=== PATIENT | female | born 1935 | race Caucasian/White ===

== ENCOUNTER 2016-08-11 10:56 | Inpatient (IN) ==
--- NOTE | 2016-08-11 11:41 | Emergency Department Note ---
Disposition Clinical Impression: Chest pain, rule out acute myocardial infarction UTI (urinary tract infection) Qualifiers: Urinary tract infection type: site unspecified Hematuria presence: with hematuria Qualified Code(s): N39.0 - Urinary tract infection, site not specified Disposition: Admitted As Inpatient Condition: Good Referrals: Boris Ovalles Jr, MD [Primary Care Provider] - Forms: ED Satisfaction Letter Time of Disposition: 14:23 General Adult HPI - General Chief complaint: ED Extremity Problem,Nontraumatic Stated complaint: left arm pain, right hip pain Time Seen by Provider: 08/11/16 11:38 Source: patient, family Limitations: no limitations Nursing Notes Reviewed: Yes Vital Signs Reviewed: Yes - History of Present Illness HPI Narrative: 80 year old female with HX of HTN and prolapsed bladder called her granddaughter one hour ago complaining of chest pain and shortness of breath associated with left arm/wrist pain and right hip pain and general fatigue and uneasiness. Glorianet states she is scheduled for a bladder prolapse surgery with Dr. Mccormack and that she routinely has UTIs. Glorianet states that she has been experiencing chills or sweating episodes for the past week when all her symptoms started. She states she has been experiencing subjective fevers. At this time her chest pain and shortness of breath have resolved and she did not recieve ASA in route and she was brought in by her family. PAtinet states that her main complaint is the left wrist and right hip pain and does not have a history of arthritis. Patient states that she does not recall trauma/injury to her wrist of hip but her left wrist is tender to movement. Pain Scale: 10 - Related Data Home Medications Medication Instructions Recorded Confirmed Amlodipine [Norvasc] 10 mg PO DAILY 12/26/14 12/26/14 Clindamycin [Cleocin] 300 mg PO Q8HR 12/26/14 12/26/14 Hydrocodone/Acetaminophen [[place] 1 - 2 tab PO Q6H PRN 12/26/14 12/26/14 5-325 Tablet] Omeprazole [PriLOSEC] 20 mg PO DAILY 12/26/14 12/26/14 Previous Rx's Medication Instructions Recorded Levofloxacin [Levaquin] 500 mg PO DAILY #11 tablet 12/30/14 Allergies Allergy/AdvReac Type Severity Reaction Status Date / Time JOAQUIM Inhibitors Allergy Swelling Verified 08/25/15 15:50 of Lip/Tongue/Throat All systems ED: reviewed and negative except as stated. Constitutional: Reports: fever, chills, weakness, night sweats. Denies: weight change Eyes: Denies: eye pain, eye discharge, vision change ENT ED: Denies: ear pain, throat pain, congestion, dysphagia Cardiovascular: Reports: chest pain, dyspnea on exertion. Denies: palpitations , edema, syncope Respiratory: Denies: cough, dyspnea, wheezes, hemoptysis Gastrointestinal: Denies: abdominal pain, nausea, vomiting, diarrhea, constipation, hematemesis, melena, hematochezia Genitourinary: Reports: dysuria. Denies: frequency, hematuria, discharge Musculoskeletal: Reports: arthralgia. Denies: back pain, neck pain, myalgia Integumentary: Denies: rash, abrasion, lesions Neurological: Denies: headache, weakness, numbness, paresthesias, confusion Psychiatric: Denies: anxiety, depression, suicidal thoughts, homicidal thoughts , auditory hallucinations, visual hallucinations Endocrine: Reports: fatigue Past Medical History - Past Medical History Medical history: Reports: GERD, hypertension, other Surgical history: Reports: cholecystectomy, hysterectomy, other Psychiatric history: Reports: no psych history - Social History Smoking Status: Never smoker Smokeless Tobacco Status: No Alcohol use: Reports: none Drug use: Reports: none Physical Exam - General Limitations: no limitations General appearance: alert, in no apparent distress, other (pale) - Head Head exam: atraumatic, normocephalic, normal inspection - Eye Eye exam: Present: normal appearance, PERRL, EOMI - Expanded Eye Exam Eyelids: bilateral: normal inspection Pupils: Left: reactive, Bilateral: regular, round - ENT ENT exam: normal exam, normal oropharynx, mucous membranes moist - Expanded ENT Exam External ear exam: Present: normal external inspection Mouth exam: Present: normal external inspection Throat exam: Present: normal inspection - Neck Neck exam: Present: normal inspection, full ROM, trachea midline - Chest Chest inspection: Present: normal inspection, symmetric chest wall rise - Respiratory Respiratory exam: Present: normal lung sounds bilaterally - Cardiovascular Cardiovascular exam: Present: normal rhythm, tachycardia, normal heart sounds - Abdominal Exam Abdominal exam: Present: soft, Non-Tender. Absent: tenderness, distention, guarding, rebound, rigidity - Expanded Upper Extremity Exam Shoulder exam: Present: normal inspection, full ROM, tenderness (leftleft) Arm exam: Present: normal inspection, full ROM, tenderness Elbow exam: Present: normal inspection, full ROM, tenderness Forearm/Wrist exam: Present: normal inspection, full ROM, tenderness (left wrist on F/E/ab/aduction) Hand exam: Present: normal inspection, full ROM, tenderness Vascular exam: Normal: capillary refill, radial pulse - Expanded Lower Extremity Exam Hip/Pelvis exam: Present: normal inspection, tenderness (right ) Upper leg exam: Present: normal inspection, full ROM. Absent: tenderness Knee exam: Present: normal inspection, full ROM. Absent: tenderness Lower leg exam: Present: normal inspection, full ROM Ankle exam: Present: normal inspection, full ROM Foot/toe exam: Present: normal inspection, full ROM Neurovascular/Tendon exam: Absent: motor deficit, sensory deficit, tendon deficit - Back Exam Back exam: Present: normal inspection, full ROM. Absent: tenderness - Neurological Exam Neurological exam: Present: alert, oriented X3 - Expanded Neurological Exam Patient oriented to: Present: person, place, time Coma Scale Eye Opening: Spontaneous Coma Scale Motor Response: Obeys Commands Coma Scale Verbal Response: Oriented Coma Scale Total: 15 - Psychiatric Psychiatric exam: Present: normal affect, normal mood - Skin Skin exam: Present: warm, dry, intact, normal color Course Course Narrative: we will do a focused cardiac evaluation in addition to ruling out source of possible infection for sepsis evaluation. IV saline lock. - Reevaluation(s) Reevaluation #1: HEART Score: 5 Time: 13:45 Reevaluation #2: updated patient on results. She meets SIR criteria and now with a source of her urine we will start zosyn, and IVF with pain relief. Patient will be admitted to the hospital today for UTI, chest pain r/o ACS. Patinet and family are agreeable to plan. Time: 14:22 - Consultations Consultation #1: discussed case with Dr. Muñoz and she accepts patient to her service. Time: 14:26 Vital Signs Temperature 99.6 F 08/11/16 10:57 Pulse Rate 111 08/11/16 10:57 Respiratory Rate 18 08/11/16 10:57 Blood Pressure 162/89 08/11/16 10:57 O2 Sat by Pulse Oximetry 97 08/11/16 10:57 Temperature 99.6 F 08/11/16 10:57 Pulse Rate 106 08/11/16 14:19 Respiratory Rate 18 08/11/16 14:19 Blood Pressure 153/84 08/11/16 14:19 O2 Sat by Pulse Oximetry 92 08/11/16 14:19 Oxygen Delivery Oxygen Delivery Nasal Cannula Medical Decision Making - Lab Data Result diagrams: 08/11/16 12:06 08/11/16 12:06 Lab Results 08/11/16 08/11/16 08/11/16 Range/Units 12:06 12:06 12:06 WBC 16.4 H (4.3-11.1) K/mcL RBC 4.25 (3.82-4.97) M/mcL Hgb 11.4 L (11.5-15.4) g/dL Hct 35.6 (35.3-44.9) % MCV 83.8 (83.0-100.0) fL MCH 26.8 L (28.0-33.3) pg MCHC 32.0 (31.6-35.5) g/dL RDW 14.1 (11.5-14.5) % Plt Count 414 H (140-400) K/mcL MPV 9.9 (9.4-12.4) fL Immature Gran % 0.5 (0-4) % Seg Neutrophils % 81.2 % Lymphocytes % 11.4 % Monocytes % 6.1 % Eosinophils % 0.4 % Basophils % 0.4 % Neutrophils # 13.3 H (1.6-8.9) K/mcL Lymphocytes # 1.9 (0.6-4.6) K/mcL Monocytes # 1.0 (0.0-1.3) K/mcL Eosinophils # 0.1 (0.0-0.6) K/mcL Basophils # 0.1 (0.0-0.2) K/mcL Sodium 138 (136-145) mEq/L Potassium 4.0 (3.5-4.5) mEq/L Chloride 101 (98-109) mEq/L Carbon Dioxide 20 (19-29) mEq/L BUN 11 (7-20) mg/dL Creatinine 0.98 (0.57-1.11) mg/dL Est GFR ( Amer) > 60 (> 60) Est GFR (Non-Af Amer) 55 L (> 60) BUN/Creatinine Ratio 11 (6-26) Glucose 93 (70-99) mg/dL Calculated Osmolality 285 (280-300) Calcium 9.6 (8.6-10.8) mg/dL Total Bilirubin 0.7 (0.2-1.2) mg/dL Direct Bilirubin 0.2 (0.0-0.5) mg/dL Indirect Bilirubin 0.5 (0.0-1.2) mg/dL AST 29 (5-34) Units/L ALT 16 (0-55) Units/L Alkaline Phosphatase 138 H (38-126) Units/L Troponin I 0.00 (0-0.03) ng/mL Serum Total Protein 9.7 H (6.0-8.3) g/dL Albumin 3.2 L (3.5-5.0) g/dL Globulin 6.5 H (2.4-3.5) g/dL Albumin/Globulin Ratio 0.5 L (1.1-2.2) Lipase 51 (8-78) Units/L Urine Color (Yellow) Urine Clarity (Clear) Urine pH (5.0-8.0) pH Units Ur Specific [place] (1.010-1.025) Urine Protein (Neg-Trace) mg/dL Urine Glucose (UA) (Normal) mg/dL Urine Ketones (Negative) mg/dL Urine Blood (Negative) Urine Nitrite (Negative) Urine Bilirubin (Negative) Urine Urobilinogen (Normal) mg/dL Ur Leukocyte Esterase (Negative) Urine Microscopic RBC (0-3) per hpf Urine Microscopic WBC (0-3) per hpf Ur Squamous Epith Cells (None-Few) per lpf Urine Bacteria (None-Few) per hpf Hyaline Casts (None-Few) per lpf Ur Culture Indicated? (NO) 08/11/16 Range/Units 13:50 WBC (4.3-11.1) K/mcL RBC (3.82-4.97) M/mcL Hgb (11.5-15.4) g/dL Hct (35.3-44.9) % MCV (83.0-100.0) fL MCH (28.0-33.3) pg MCHC (31.6-35.5) g/dL RDW (11.5-14.5) % Plt Count (140-400) K/mcL MPV (9.4-12.4) fL Immature Gran % (0-4) % Seg Neutrophils % % Lymphocytes % % Monocytes % % Eosinophils % % Basophils % % Neutrophils # (1.6-8.9) K/mcL Lymphocytes # (0.6-4.6) K/mcL Monocytes # (0.0-1.3) K/mcL Eosinophils # (0.0-0.6) K/mcL Basophils # (0.0-0.2) K/mcL Sodium (136-145) mEq/L Potassium (3.5-4.5) mEq/L Chloride (98-109) mEq/L Carbon Dioxide (19-29) mEq/L BUN (7-20) mg/dL Creatinine (0.57-1.11) mg/dL Est GFR ( Amer) (> 60) Est GFR (Non-Af Amer) (> 60) BUN/Creatinine Ratio (6-26) Glucose (70-99) mg/dL Calculated Osmolality (280-300) Calcium (8.6-10.8) mg/dL Total Bilirubin (0.2-1.2) mg/dL Direct Bilirubin (0.0-0.5) mg/dL Indirect Bilirubin (0.0-1.2) mg/dL AST (5-34) Units/L ALT (0-55) Units/L Alkaline Phosphatase (38-126) Units/L Troponin I (0-0.03) ng/mL Serum Total Protein (6.0-8.3) g/dL Albumin (3.5-5.0) g/dL Globulin (2.4-3.5) g/dL Albumin/Globulin Ratio (1.1-2.2) Lipase (8-78) Units/L Urine Color Yellow (Yellow) Urine Clarity Turbid A (Clear) Urine pH 6.0 (5.0-8.0) pH Units Ur Specific [place] 1.012 (1.010-1.025) Urine Protein 30 H (Neg-Trace) mg/dL Urine Glucose (UA) Normal (Normal) mg/dL Urine Ketones Negative (Negative) mg/dL Urine Blood Large H (Negative) Urine Nitrite Positive A (Negative) Urine Bilirubin Negative (Negative) Urine Urobilinogen Normal (Normal) mg/dL Ur Leukocyte Esterase Large H (Negative) Urine Microscopic RBC 50-100 H (0-3) per hpf Urine Microscopic WBC TNTC H (0-3) per hpf Ur Squamous Epith Cells Many H (None-Few) per lpf Urine Bacteria Many H (None-Few) per hpf Hyaline Casts Few (None-Few) per lpf Ur Culture Indicated? YES A (NO) - EKG Data EKG #1 EKG attestation: Yes I reviewed and interpreted this EKG. EKG results narrative: sinus tachycardia with rate of 104. NO STEMI. normal intervals. LAE. q eave prsent in II/avf. no old ekg. 1119 Attestation Statement - Attestation Attestation: I personally interviewed and examined this patient and my medical decision- making was reviewed with the ED Resident Physician, Dr. Correia. I agree with the documented findings, disposition and treatment plan as described except to the extent set forth below. Patient is an 80-year-old white female brought by her daughter for evaluation of complaints of chest pain this morning. Patient's daughter reports she was talking to her on the phone and while she was talking to reverse the patient was complaining of left upper extremity pain. The daughter states that when she complained of that she asked of her chest was hurting at all and she admitted that it was. This pain began sometime after she awoke this morning she said that she was short of breath but she thought that her shortness of breath was due to the amount of pain she was experiencing in her left arm as well as in her right hip. Patient states that her main issue has been variable diffuse joint pain and generalized myalgias over the past 2 weeks. Patient states she was having some left paraspinal neck pain as well as pain in bilateral hips. Patient states it has migrated down into her left arm and that although her upper arm was hurting this morning now primarily the pain is located in her left forearm wrist and hand. Patient has exquisite pain with any movement to the left upper extremity and any palpation. Seems excruciating to her. She has no signs of deformity or trauma. Patient denies any falls or history of trauma over the past 2 weeks. Patient has no areas of ecchymosis or contusions or abrasions. Patient has no areas of erythema or induration, compartments of the arm are soft. There is no overlying erythema or warmth to the skin or joints. Patient currently denies any chest discomfort she states that the pain resolved prior to arrival to the emergency department. She currently denies any shortness of breath no recent cough or cold symptoms, no fevers or chills, no sore throat, no abdominal pain, no nausea or vomiting. Patient does state that she decreased appetite this morning and "did not feel like eating breakfast". Daughters are also concerned and mentioned that she has had issues with urinary tract infections in the past has resulted in sepsis due to urinary retention. Requesting that we check for that although the patient denies any abdominal pain or cramping, no flank discomfort and no urinary symptoms. Patient has remained chest pain-free drop her ED course with mild tachycardia but a stable blood pressure. Patient's imaging was unremarkable overall no sign of bony injury to the left upper extremity or hip and chest x-ray clear. Patient was found to have a leukocytosis with a left shift as well as a UTI on Urine specimen. Based on her sensitivity reports she is null sensitive to most antibiotics. Patient with meets SIRS criteria with her leukocytosis tachycardia positive urine. We will initiate antibiotics in the ED and send urine cultures as well as blood cultures. Patient's blood pressure remained stable at this time. Will admit patient for UTI, early sepsis, as well as reevaluation of her chest pain.
[2016-08-11 12:35] LABS: Basophils # 0.1 K/mcL (0.0-0.2); Basophils % 0.4 %; Eosinophils # 0.1 K/mcL (0.0-0.6); Eosinophils % 0.4 %; Hematocrit 35.6 % (35.3-44.9); Hemoglobin 11.4 g/dL (11.5-15.4); Immature Granulocytes % 0.5 % (0-4); Lymphocytes # 1.9 K/mcL (0.6-4.6); Lymphocytes % 11.4 %; Mean Corpuscular Hemoglobin 26.8 pg (28.0-33.3); Mean Corpuscular Volume 83.8 fL (83.0-100.0); Mean Platelet Volume 9.9 fL (9.4-12.4); Monocytes % 6.1 %; Neutrophils # 13.3 K/mcL (1.6-8.9); Platelet Count 414 K/mcL (140-400); Red Blood Count 4.25 M/mcL (3.82-4.97); Red Cell Distribution Width 14.1 % (11.5-14.5); Segmented Neutrophils % 81.2 %
[2016-08-11] MEDS ORDERED: 0.9 % Sodium Chloride 500 ML IVC ONE (12:42)
[2016-08-11 12:44] LABS: Alanine Aminotransferase 16 Units/L (0-55); Albumin 3.2 g/dL (3.5-5.0); Albumin/Globulin Ratio 0.5 (1.1-2.2); Alkaline Phosphatase 138 Units/L (38-126); BUN/Creatinine Ratio 11 (6-26); Bilirubin,Indirect 0.5 mg/dL (0.0-1.2); Bilirubin,Total 0.7 mg/dL (0.2-1.2); Blood Urea Nitrogen 11 mg/dL (7-20); Calcium 9.6 mg/dL (8.6-10.8); Carbon Dioxide 20 mEq/L (19-29); Chloride 101 mEq/L (98-109); Globulin 6.5 g/dL (2.4-3.5); Glucose 93 mg/dL (70-99); Lipase 51 Units/L (8-78); Osmolality,Calculated 285 (280-300); Sodium 138 mEq/L (136-145); eGFR For African Americans > 60 (> 60); eGFR For Non-African Americans 55 (> 60)
[2016-08-11 12:45] LABS: Aspartate Amino Transferase 29 Units/L (5-34); Bilirubin,Direct 0.2 mg/dL (0.0-0.5); Total Protein 9.7 g/dL (6.0-8.3)
[2016-08-11] MEDS ORDERED: *HR* FentaNYL (PF) 100 MCG/2 ML VIAL IVP ONE (12:46)
[2016-08-11] MEDS ORDERED: Aspirin 81 MG TAB.CHEW PO ONE (13:20)
[2016-08-11 13:57] LABS: Bilirubin,Urine Negative (Negative); Blood,Urine Large (Negative); Clarity,Urine Turbid (Clear); Color,Urine Yellow (Yellow); Glucose,Urine (UA) Normal (Normal); Ketones,Urine Negative (Negative); Leukocyte Esterase,Urine Large (Negative); Nitrite,Urine Positive (Negative); Protein,Urine 30 mg/dL (Neg-Trace); Specific Gravity,Urine 1.012 (1.010-1.025); Urobilinogen,Urine Normal (Normal)
[2016-08-11 14:01] LABS: Bacteria,Urine Many per hpf (None-Few); Hyaline Casts,Urine Few per lpf (None-Few); RBC,Urine 50-100 per hpf (0-3); Squamous Epithelial Cell,Urine Many per lpf (None-Few); WBC,Urine TNTC per hpf (0-3)
[2016-08-11] MEDS ORDERED: *HR* Morphine 2 MG/ML SYRINGE IVP ONE (14:18)
[2016-08-11] MEDS ORDERED: Piperacillin/Tazobactam 3.375 GM in D5% in Water (Mini-Bag+) 100 ML IVPB ONE (14:18)
[2016-08-11] MEDS ORDERED: Ondansetron 4 MG/2 ML VIAL IVP ONE (14:18)
[2016-08-11] MEDS ORDERED: Naloxone 0.4 MG/ML INJ IVP PRN (15:09)
[2016-08-11] MEDS ORDERED: Ondansetron 4 MG/2 ML VIAL IVP PRN (15:09)
[2016-08-11] MEDS ORDERED: 0.9 % Sodium Chloride 1,000 ML IVC SCH (15:15)
--- NOTE | 2016-08-11 16:54 | Internal Med History&Physical ---
<Wendy Begum - Last Filed: 08/11/16 17:12> Date of Encounter: 08/11/16 Time of Encounter: 15:00 Assessment and Plan (1) Sepsis Current visit: Yes Status: Acute 1 patient patient has chronic history of UTIs. She presents with subjective fevers chills low-grade temperature 90.9 tachycardic elevated white count 16.4 sources urinary. Blood cultures urine cultures obtained 2 patient given IV fluids in the ER will continue 3 IV Rocephin adjusted sensitivity once cultures are back 4 monitor intake and output Qualifiers: Sepsis type: sepsis due to unspecified organism Qualified Code(s): A41.9 - Sepsis, unspecified organism (2) UTI (urinary tract infection) Current visit: No Status: Acute 1 patient has history of chronic UTIs is to go undergo bladder repair with Dr. Mccormack. Urinalysis revealed UTI. She has subjective fever and elevated white count. Blood cultures urine cultures obtained 2 continue with Rocephin adjust to sensitivity-previous cultures Escherichia coli sensitive to Rocephin Qualifiers: Urinary tract infection type: acute cystitis Hematuria presence: with hematuria Qualified Code(s): N30.01 - Acute cystitis with hematuria (3) Chest pain, rule out acute myocardial infarction Current visit: Yes Status: Acute 1 patient is experiencing midsternal chest pain this a.m. 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 Paiz is a 80 year old female past medical history of high blood pressure as well as bladder prolapse frequent UTIs. Patient had been experiencing some chest pain shortness of breath which did start this morning. Pain is nonradiating describes as a heaviness 10 out of 10 no aggravating or relieving factors. Chest pain resolved on its own. She also has been experiencing left arm and wrist pain as well as hip fatigue and lower extremity weakness for approximately 2 weeks she scheduled for a bladder prolapse surgery with Dr. Mccormack and she has repeated UTIs. She has been experiencing some chills and sweating for the past week. Patient denies any recent trauma or injury to her wrist or hip she denies any falls. She presented to the ER with the above complaint. According to ER records patient was tachycardic on presentation. 111 temperature was 99.6 lab work revealed elevated white count 16.4 cardiac troponin was 0 urinalysis indicative of UTI with a large amount of blood and nitrates and leuko esterase. Patient did meet sepsis criteria blood cultures were obtained patient was given IV fluids lactate was obtained she was given IV Zosyn. X-ray of chest was negative for any acute process hip x-ray was negative for any fractures x-ray of left wrist did reveal arthritic changes. She has been admitted for further workup and evaluation. Presently the patient complains of pain all over left wrist is tender to touch limited range of motion to the home. She is unable to crash E states it hurts too much. Range of motion of lower extremities patient states painful to move. She complains of midsternal chest pain which is reproducible on palpation. EKG with no ST-T wave abnormalities lungs sounds are clear heart sounds S1 and S2 with no rubs clipped gallops murmurs noted. She is hemodynamically stable this time. I reviewed his case with Dr. Joshua who agrees with plan Past Med Surg Social Fam HX - Past Medical History Medical history: GERD, hypertension, other Psychiatric history: no psych history - Past Surgical History Surgical History: cholecystectomy, hysterectomy, other - Social History Smoking Status: Never smoker Smokeless Tobacco Status: No Alcohol use: none Drug use: none - Family History Mother Family Member Ethnicity: Non- Living Status: Hx Family Cardiac Disorders: No Hx Family Respiratory Disorders: No Hx Family Cancer: No Hx Family GI Disorders: No Hx Family Endocrine Disorder: No Hx Family Neuromuscular Disorders: No Hx Family Neurologic Disorders: No Hx Family HEENT Disorders: No Hx Family Autoimmune Disorders: No Internal Medicine - H&P: Meds Amlodipine [Norvasc] 10 mg PO DAILY 08/25/15 [History] Omeprazole [PriLOSEC] 20 mg PO DAILY 12/26/14 [History] Allergies JOAQUIM Inhibitors Allergy (Verified 12/26/14 15:50) Swelling of Lip/Tongue/Throat All Systems PM: A 10-system review of systems was performed and is negative for pertinent findings except as documented above in the HPI. - Constitutional Constitutional: fatigue, fever(s), malaise, night sweats, weakness - Cardiovascular Cardiovascular ROS IM: chest pain, no diaphoresis, no dyspnea, no lightheadedness, no palpitations, no syncope - Respiratory Respiratory: dyspnea - Gastrointestinal Gastrointestinal: no abdominal pain, no diarrhea, no hematemesis, no hematochezia, no melena, no nausea, no vomiting - Genitourinary Genitourinary: no change in urinary stream, no dysuria, no flank pain, no hematuria - Musculoskeletal Musculoskeletal ROS IM: arthralgias, limited range of motion, stiffness - Neurological Neurological ROS: no confusion, no convulsions, no focal weakness, no numbness, no tingling, no tremor(s) - Constitutional Vitals: Temp Pulse Resp BP Pulse Ox 99.6 F 94 18 118/79 92 08/11/16 10:57 08/11/16 16:04 08/11/16 16:17 08/11/16 16:17 08/11/16 16:04 General appearance: Present: A&O X 3, answers questions appropriately - Head Head exam: Present: atraumatic, normocephalic - Neck Neck exam general surgery: Present: supple, trachea midline. Absent: lymphadenopathy - Respiratory Respiratory exam: Present: CTAB. Absent: accessory muscle use, rales, rhonchi, wheezes - Cardiovascular Cardiovascular exam: Present: RRR, +S1, +S2. Absent: diastolic murmur, gallop, rubs, systolic murmur - GI/Abdominal GI/Abdominal exam: Present: normal bowel sounds, soft, no peritoneal signs. Absent: distended, tenderness - Extremities Exam Extremities exam: Present: warm, radial pulses palpable and symetrical. Absent : calf tenderness, cyanotic, pedal edema - Expanded Upper Extremities Exam Forearm wrist exam: Present: pain with axial thumb loading, tenderness - Neurological Exam Neurological exam: Present: CN II-XII intact, oriented X3, no focal deficits. Absent: pronater drift, facial droop, speech deficit - Skin Skin exam: Present: dry, intact Internal Med - H&P Results - Labs CBC & Chem 7: 08/11/16 12:06 08/11/16 12:06 - EKG Data Rate: tachycardia - EKG Data Prior EKG available for review: yes When compared to previous EKG: there is no significant change - Diagnostic Studies Other Images Additional comments: Chest X-Ray 08/11/16 11:07 IMPRESSION: No acute cardiopulmonary disease. D/ / 08/11/2016 11:52:00 Sumaya Paulson MD / Ketty Nolan Interpreting Provider: Sumaya Paulson MD Hip X-Ray 08/11/16 11:17 IMPRESSION: No significant findings in the right hip. D/ / Sterling Sawant MD / Sterling Sawant MD Interpreting Provider: Sterling Sawant MD Wrist X-Ray 08/11/16 11:17 IMPRESSION: 1. Moderate thumb CMC degenerative changes. No superimposed acute osseous finding to account for patient's pain. 2. Triangular fibrocartilage chondrocalcinosis. D/ / 08/11/2016 11:53:27 Ta oMta MD / pardeep Interpreting Provider: Ta Mota MD <Blu Joshua T - Last Filed: 08/11/16 17:38> Date of Encounter: 08/11/16 Internal Medicine - H&P: HPI History of present illness: Ms. Paiz is a 80 year old female All Systems PM: A 10-system review of systems was performed and is negative for pertinent findings except as documented above in the HPI. - Constitutional Vitals: Temp Pulse Resp BP Pulse Ox 99.6 F 94 18 118/79 92 08/11/16 10:57 08/11/16 16:04 08/11/16 16:17 08/11/16 16:17 08/11/16 16:04 Internal Med - H&P Results - Labs CBC & Chem 7: 08/11/16 12:06 08/11/16 12:06 - Attending Attestation Seen independently at bedside and EMR reviewed. Plan of care is as discussed with PHOTOLITH OPERATOR Wendy Begum with the plan reflected in her documentation Patient with migrating arthralgia and generalized body tenderness, no flu-like symptoms, she is comfortable at bedside, tachycardic, chest pain is reproducible and her Left wrist is mildly swollen, no pedal edema, she has S1, S2, regular and tachycardic, aortic sclerosis murmur. Abdomen is benign, not tender, neuro exam showed no deficits labs and imaging reviewed: leukocytosis with left shift, UA with positive nitrites, LE, blood. Head CT/CXR unremarkable, Left wrist Xray with degenerative changes A/P: Sepsis secondary to UTI, Myalgias on-specific, R wrist osteoarthritis, follow cultures, continue ceftriaxone, cycle troponins, follow ECHO rest of details as in HARINDER Boyd's documentation
[2016-08-11] MEDS: Acetaminophen 325 MG TABLET PO PRN ×2 (18:11→23:41)
[2016-08-11] MEDS: 0.9 % Sodium Chloride 1,000 ML IVC SCH (18:35)
[2016-08-11] MEDS: Ibuprofen 400 MG TABLET PO SCH (20:53)
[2016-08-12 01:16] LABS: Basophils % 0.3 %; Eosinophils # 0.3 K/mcL (0.0-0.6); Eosinophils % 2.2 %; Hematocrit 29.4 % (35.3-44.9); Immature Granulocytes % 0.5 % (0-4); Lymphocytes # 2.6 K/mcL (0.6-4.6); Lymphocytes % 22.9 %; Mean Corpuscular HGB Conc 31.6 g/dL (31.6-35.5); Mean Corpuscular Hemoglobin 26.4 pg (28.0-33.3); Mean Corpuscular Volume 83.5 fL (83.0-100.0); Mean Platelet Volume 9.1 fL (9.4-12.4); Monocytes # 1.2 K/mcL (0.0-1.3); Monocytes % 10.1 %; Neutrophils # 7.4 K/mcL (1.6-8.9); Platelet Count 333 K/mcL (140-400); Red Blood Count 3.52 M/mcL (3.82-4.97); Red Cell Distribution Width 14.1 % (11.5-14.5)
[2016-08-12 01:20] LABS: Hemoglobin 9.3 g/dL (11.5-15.4)
[2016-08-12 01:32] LABS: BUN/Creatinine Ratio 12 (6-26); Blood Urea Nitrogen 10 mg/dL (7-20); Calcium 8.7 mg/dL (8.6-10.8); Carbon Dioxide 22 mEq/L (19-29); Chloride 106 mEq/L (98-109); Chol/HDL Ratio 3.9 (0-4.9); Cholesterol 139 mg/dL (< 200); Glucose 101 mg/dL (70-99); HDL Cholesterol 36 mg/dL (40-59); LDL Cholesterol,Calculated 82 mg/dL (0-99); Osmolality,Calculated 287 (280-300); Sodium 139 mEq/L (136-145); Triglycerides 104 mg/dL (< 150); eGFR For African Americans > 60 (> 60); eGFR For Non-African Americans > 60 (> 60)
[2016-08-12 01:33] LABS: Potassium 2.8 mEq/L (3.5-4.5)
[2016-08-12] MEDS: 0.9 % Sodium Chloride 1,000 ML IVC SCH ×2 (03:40→14:27)
[2016-08-12] MEDS: *HR* Enoxaparin 40 MG/0.4 ML SYRINGE SQ SCH (05:50)
[2016-08-12] MEDS: Acetaminophen 325 MG TABLET PO PRN ×2 (08:06→23:54)
[2016-08-12 09:15] LABS: Magnesium 1.7 mg/dL (1.6-2.6)
[2016-08-12] MEDS: Ibuprofen 400 MG TABLET PO SCH (09:26)
[2016-08-12] MEDS: amLODIPine 5 MG TABLET PO SCH (09:26)
[2016-08-12] MEDS: Aspirin Enteric Coated 81 MG Tablet PO SCH (09:26)
--- NOTE | 2016-08-12 10:53 | ECHO - Doppler Report ---
Echocardiogram Name: Laura Paiz Date of Study: 08/12/2016 Date: 1935 Ht: 65.0 in Medical Record#: [id number] Age: 80 Wt: 150.0 lb Gender: Female BSA: 1.75 Order #: [id number] Location: [facility] Room #: 2A32 Reading Physician: Geeta Galan DO Re[employer] Tub[employer] Machine Operator: Julio C Sahni RN Ordering Physician: Wendy Begum CNP Primary Physician: Boris Ovalles MD Indications: Chest pain Impressions: LVEF 65%. Normal left ventricular size and systolic function. There is evidence of mild diastolic dysfunction of the left ventricle. Normal right ventricular size and function. Mild mitral regurgitation. Mild tricuspid regurgitation. No pulmonary hypertension. Trivial pericardial effusion. No tamponade. Left Ventricular Wall Motion: Rest Echo Findings All wall segments showed normal motion. Findings: Study Quality * Technically adequate exam. ECG Findings * Normal sinus rhythm. Left Ventricle * Basal sigmoid septum. * LVEF 65%. * Mild left ventricular diastolic dysfunction. Aorta * Normally sized aortic root. Mitral Valve * No mitral stenosis. * Mildly calcified mitral valve leaflets. * Mild mitral regurgitation. Aortic Valve * No aortic regurgitation. * Trileaflet aortic valve. * Normal aortic valve structure. * No aortic stenosis. Tricuspid Valve * Normal tricuspid valve structure. * Mild tricuspid regurgitation. * Estimated RA pressure is 3 mmHg. * Estimated RVSP is 32 mmHg. * No pulmonary hypertension. Pulmonic Valve * Pulmonic valve is not well visualized. * No pulmonic stenosis. * Trace pulmonic regurgitation. Pulmonary Artery * Pulmonary artery not well visualized. Right Ventricle * Normal right ventricular structure and function. Right Atrium * Normal right atrial size. Pericardium * There is a trivial pericardial effusion present. * There is no echocardiographic evidence of tamponade. Left Atrium * Moderate to severely dilated left atrium. Interatrial Septum * No evidence of PFO by color Doppler. IVC * Normal IVC dimensions and inspiratory collapse. History Hypertension Measurements: BP: 113/ 73 2D Normal Values RVIDd: 3.00 cm <2.7 cm IVSd: 1.00 cm 0.6 - 1.0 cm LVIDd: 5.40 cm 3.7 - 5.6 cm LVPWd: 1.00 cm 0.6 - 1.1 cm LVIDs: 3.20 cm 1.5 - 3.6 cm LA: 3.70 cm 2.0 - 4.0cm %FS: 40.70 cm >25 % LVOT Diam: 2.00 cm LA volume: 86 Mitral Valve Peak E:1.04 m/sec Peak A:1.30 m/sec E/A Ratio:0.8 Peak E' Lat Adán:6.34 cm/s Peak E' Med Adán:5.36 cm/s E/E' Lat Ratio:16.4 E/E' Med Ratio:19.4 Tricuspid Valve TV Regurg Peak Grad: 29.00mmHg TV Regurg Peak Adán: 2.71m/sec Updated by Geeta Galan on 08/12/2016 10:46:47 AM electronically signed on 08/12/2016 10:47:56 AM with status of Final Wall Motion Miller: 1=Normal, 2=Hypokinesis, 3=Akinesis, 4=Dyskinesis, 5=Aneurysmal, 6=Hyperkinetic, X=Not Visualized (Blank)=Missing
[2016-08-12] MEDS ORDERED: Ibuprofen 400 MG TABLET PO PRN (11:39)
[2016-08-12] MEDS ORDERED: predniSONE 20 MG TABLET PO SCH (12:00)
[2016-08-12 12:44] LABS: Uric Acid 4.7 mg/dL (2.6-6.0)
[2016-08-12] MEDS: Magnesium Oxide 400 MG TABLET PO SCH ×2 (14:28→20:47)
[2016-08-12] MEDS: *HR* HYDROcodone/Acet 5/325 mg TABLET PO PRN ×2 (14:40→20:46)
--- NOTE | 2016-08-12 16:04 | Internal Med Progress Note ---
<Clemente Riggs - Last Filed: 08/12/16 16:01> Date of Encounter: 08/12/16 Time of Encounter: 16:01 - Assessment and plan (1) Sepsis Current Visit: Yes Status: Acute Assessment and plan: patient met Sepsis criteria. With Leukocytosis and ttachycardia. However she also appears to be having a pseudogout flair so this may explain some of this. Normal lactic acid. Source secondary to UTI. 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 Mccormack. Plan is for surgical correction eventually. Blood cultures are pending. Urine cultures have grown GNR. Agree with Lance looking at prior cultures. Qualifiers: Sepsis type: sepsis due to unspecified organism Qualified Code(s): A41.9 - Sepsis, unspecified organism (2) UTI (urinary tract infection) Current Visit: No Status: Acute Assessment and plan: as stated above. No need for pacheco. Will Dc Qualifiers: Urinary tract infection type: acute cystitis Hematuria presence: with hematuria Qualified Code(s): N30.01 - Acute cystitis with hematuria (3) Pseudogout Current Visit: Yes Status: Acute Assessment and plan: Xray of the left wrist reveals chondrocalcinosis. likely exacerbated by infection and low magnesium. will treat with naproxen. I dont see a joint effusion on exam so unable to tap and confirm with microscopy at this time. (4) DVT prophylaxis Current Visit: Yes Status: Acute Assessment and plan: Lovenox - Subjective Interval history: No major events overnight. This Am patient complains of left wrist pain, neck stiffness, low back pain and right hip pain. She denies any chest pain or difficulty breathing. she denies any dysuria or hematuria but states she is often asymptomatic with her UTIs. She has no further complaints or concerns at this time. - Constitutional Vitals: Temp Pulse Resp BP Pulse Ox 98.7 F 80 18 123/71 93 08/12/16 10:55 08/12/16 10:55 08/12/16 10:55 08/12/16 10:55 08/12/16 10:55 General appearance: Present: A&O X 3, answers questions appropriately - Head Head exam: Present: atraumatic, normocephalic - Eye Eye exam: Present: PERRL, conjuntiva pink, sclera anicteric Pupils: Present: PERRL - Neck Neck exam general surgery: Present: supple, trachea midline. Absent: lymphadenopathy - Respiratory Respiratory exam: Present: CTAB. Absent: accessory muscle use, rales, rhonchi, wheezes - Cardiovascular Cardiovascular exam: Present: RRR, +S1, +S2. Absent: diastolic murmur, gallop, rubs, systolic murmur - GI/Abdominal GI/Abdominal exam: Present: normal bowel sounds, soft, no peritoneal signs. Absent: distended, tenderness - Extremities Exam Extremities exam: Present: warm, radial pulses palpable and symetrical. Absent : calf tenderness, cyanotic, pedal edema Additional comments: the left wrist is warm to palpation and very tender with crepitation to palpation. and movement. I could not appreciate any fluid collection. Normal external inspection of the right hip. However she has pain with movement. Internal Medicine: Result - Labs CBC & Chem 7: 08/12/16 00:54 08/12/16 00:54 Labs: Short CBC 08/12/16 Range/Units 00:54 WBC 11.5 H (4.3-11.1) K/mcL Hgb 9.3 L D (11.5-15.4) g/dL Hct 29.4 L (35.3-44.9) % Plt Count 333 (140-400) K/mcL Neutrophils # 7.4 (1.6-8.9) K/mcL BMP 08/12/16 00:54 Sodium 139 Potassium 2.8 L D Chloride 106 Carbon Dioxide 22 BUN 10 Creatinine 0.86 Glucose 101 H Calcium 8.7 Cardiac Enzymes 08/11/16 08/12/16 Range/Units 18:18 00:54 Troponin I 0.00 0.00 (0-0.03) ng/mL Consult Discharge Plan - Plan Referrals: Boris Ovalles Jr, MD [Primary Care Provider] - <Moshe Vang - Last Filed: 08/12/16 17:04> Date of Encounter: 08/12/16 - Constitutional Vitals: Temp Pulse Resp BP Pulse Ox 98.9 F 92 18 146/74 92 08/12/16 16:39 08/12/16 16:39 08/12/16 16:39 08/12/16 16:39 08/12/16 16:39 Internal Medicine: Result - Labs CBC & Chem 7: 08/12/16 00:54 08/12/16 00:54 Labs: Short CBC 08/12/16 Range/Units 00:54 WBC 11.5 H (4.3-11.1) K/mcL Hgb 9.3 L D (11.5-15.4) g/dL Hct 29.4 L (35.3-44.9) % Plt Count 333 (140-400) K/mcL Neutrophils # 7.4 (1.6-8.9) K/mcL BMP 08/12/16 00:54 Sodium 139 Potassium 2.8 L D Chloride 106 Carbon Dioxide 22 BUN 10 Creatinine 0.86 Glucose 101 H Calcium 8.7 Cardiac Enzymes 08/11/16 08/12/16 Range/Units 18:18 00:54 Troponin I 0.00 0.00 (0-0.03) ng/mL - Attending Attestation I examined this patient and my medical decision-making was reviewed with the CAMP HOUSEKEEPER/PA/Advanced Practice Nurse/Resident Physician. I agree with the documented findings, disposition and treatment plan as described except to the extent set forth below. Wrist xray noted, likely pseudgout. Continue with antibiotics for UTI. Echo noted. Remove pacheco.
[2016-08-12] MEDS ORDERED: Potassium Chloride Elixir 20 MEQ/15 ML UDC PO ONE ×2 (16:05→17:43)
--- NOTE | 2016-08-12 17:42 | Electrocardiograph Report ---
[address] [place] [address] Test Date: 2016-08-11 Pat Name: Laura Paiz Department: 102 Room: 2A32 Gender: F Hog Scalder: : 1935 Requested By: Avis Correia Order Number: [id number] Reading MD: Rony Valerio Measurements Intervals [place] Rate: 104 P: 7 W[place]: 136 QRS: -11 QRSD: 110 T: 32 QT: 343 QTc: 403 Interpretive Statements SINUS TACHYCARDIA POSSIBLE LEFT ATRIAL ENLARGEMENT POSSIBLE INFERIOR MYOCARDIAL INFARCTION, PROBABLY OLD ABNORMAL RHYTHM ECG Electronically Signed On 08-12-2016 17:40:30 EDT by Rony Valerio
[2016-08-13 04:50] LABS: Basophils % 0.2 %; Eosinophils % 0.2 %; Hematocrit 30.8 % (35.3-44.9); Hemoglobin 9.6 g/dL (11.5-15.4); Immature Granulocytes % 0.6 % (0-4); Lymphocytes # 1.9 K/mcL (0.6-4.6); Lymphocytes % 15.4 %; Mean Corpuscular HGB Conc 31.2 g/dL (31.6-35.5); Mean Corpuscular Hemoglobin 26.2 pg (28.0-33.3); Mean Corpuscular Volume 83.9 fL (83.0-100.0); Mean Platelet Volume 9.2 fL (9.4-12.4); Monocytes # 0.5 K/mcL (0.0-1.3); Monocytes % 4.2 %; Neutrophils # 9.9 K/mcL (1.6-8.9); Platelet Count 379 K/mcL (140-400); Red Blood Count 3.67 M/mcL (3.82-4.97); Red Cell Distribution Width 13.8 % (11.5-14.5); Segmented Neutrophils % 79.4 %
[2016-08-13 05:11] LABS: BUN/Creatinine Ratio 10 (6-26); Blood Urea Nitrogen 7 mg/dL (7-20); Calcium 8.9 mg/dL (8.6-10.8); Carbon Dioxide 21 mEq/L (19-29); Chloride 108 mEq/L (98-109); Glucose 101 mg/dL (70-99); Magnesium 1.7 mg/dL (1.6-2.6); Osmolality,Calculated 284 (280-300); Sodium 138 mEq/L (136-145); eGFR For African Americans > 60 (> 60); eGFR For Non-African Americans > 60 (> 60)
[2016-08-13 05:20] LABS: Potassium 4.4 mEq/L (3.5-4.5)
[2016-08-13] MEDS: *HR* Enoxaparin 40 MG/0.4 ML SYRINGE SQ SCH (05:36)
--- NOTE | 2016-08-13 07:27 | Urology Progress Note ---
Date of Encounter: 08/13/16 Time of Encounter: 07:24 - Assessment and Plan (1) UTI (urinary tract infection) Current Visit: Yes Status: Acute Assessment and plan: urine cx growing gram neg rods. final not returned yet. OK with discharge from standpoint. surgery canceled yesterday bc of acute illness. will reschedule. I am going to recommend ABX coverage up until surgery day (yet to be planned). If patient goes home before final culture is back, I recommend starting bactrim. I can followup final culture and start appropriate ABX if resistance to bactrim Qualifiers: Urinary tract infection type: acute cystitis Hematuria presence: with hematuria Qualified Code(s): N30.01 - Acute cystitis with hematuria Progress Note Subjective: feels better Narrative: pt states she feels better but is still having left arm pain and difficulty moving. cath out and urinating well Objective Initial Vital Signs Temp Pulse Resp BP Pulse Ox 99.6 F 111 18 162/89 97 08/11/16 10:57 08/11/16 10:57 08/11/16 10:57 08/11/16 10:57 08/11/16 10:57 - General physical appearance Present: well developed, no distress - Abdomen Present: soft, non tender - Labs 08/13/16 04:11 08/13/16 04:11 Diabetes panel 08/13/16 Range/Units 04:11 Sodium 138 (136-145) mEq/L Potassium 4.4 D (3.5-4.5) mEq/L Chloride 108 (98-109) mEq/L Carbon Dioxide 21 (19-29) mEq/L BUN 7 (7-20) mg/dL Creatinine 0.73 (0.57-1.11) mg/dL Glucose 101 H (70-99) mg/dL Calcium 8.9 (8.6-10.8) mg/dL Calcium panel 08/13/16 Range/Units 04:11 Calcium 8.9 (8.6-10.8) mg/dL Pituitary panel 08/13/16 Range/Units 04:11 Sodium 138 (136-145) mEq/L Potassium 4.4 D (3.5-4.5) mEq/L Chloride 108 (98-109) mEq/L Carbon Dioxide 21 (19-29) mEq/L BUN 7 (7-20) mg/dL Creatinine 0.73 (0.57-1.11) mg/dL Glucose 101 H (70-99) mg/dL Calcium 8.9 (8.6-10.8) mg/dL Adrenal panel 08/13/16 Range/Units 04:11 Sodium 138 (136-145) mEq/L Potassium 4.4 D (3.5-4.5) mEq/L Chloride 108 (98-109) mEq/L Carbon Dioxide 21 (19-29) mEq/L BUN 7 (7-20) mg/dL Creatinine 0.73 (0.57-1.11) mg/dL Glucose 101 H (70-99) mg/dL Calcium 8.9 (8.6-10.8) mg/dL Consult Discharge Plan - Plan Referrals: Boris Ovalles Jr, MD [Primary Care Provider] -
[2016-08-13] MEDS: Magnesium Oxide 400 MG TABLET PO SCH (08:36)
[2016-08-13] MEDS: Aspirin Enteric Coated 81 MG Tablet PO SCH (08:36)
[2016-08-13] MEDS: amLODIPine 5 MG TABLET PO SCH (08:37)
[2016-08-13] MEDS ORDERED: *HR* HYDROcodone/Acet 5/325 mg TABLET PO PRN (10:03)
[2016-08-13 11:20] VITALS: BP 136/76
--- NOTE | 2016-08-13 13:26 | Discharge Summary ---
<Clemente Riggs - Last Filed: 08/13/16 13:45> Date of Encounter: 08/13/16 Time of Encounter: 13:21 - Discharge Diagnosis (1) Sepsis Priority: Primary Status: Acute Qualifiers: Sepsis type: sepsis due to unspecified organism Qualified Code(s): A41.9 - Sepsis, unspecified organism (2) UTI (urinary tract infection) Priority: Secondary Status: Acute Qualifiers: Urinary tract infection type: acute cystitis Hematuria presence: with hematuria Qualified Code(s): N30.01 - Acute cystitis with hematuria (3) Pseudogout Priority: Secondary Status: Acute (4) DVT prophylaxis Priority: Secondary Status: Acute - Discharge Medications Prescriptions: HYDROcodone/Acet 5/325 mg [[place] 5-325 mg] 1 tab PO Q8HR PRN #21 tablet PRN Reason: Moderate to Severe Pain (4-10) Naproxen [Naprosyn] 500 mg PO BIDWM PRN 30 Days PRN Reason: Pain Nitrofurantoin Macrocrystal [Nitrofurantoin] 100 mg PO BID #40 capsule Home Medications: Amlodipine [Norvasc] 10 mg PO DAILY 12/26/14 [History] Omeprazole [PriLOSEC] 20 mg PO DAILY 12/26/14 [History] Aspirin Enteric Coated [Aspirin EC] 81 mg PO DAILY tablet. 08/13/16 [Rx] HYDROcodone/Acet 5/325 mg [[place] 5-325 mg] 1 tab PO Q8HR PRN #21 tablet [Rx] Naproxen [Naprosyn] 500 mg PO BIDWM PRN 30 Days 08/13/16 [Rx] Nitrofurantoin Macrocrystal [Nitrofurantoin] 100 mg PO BID #40 capsule 08/13/16 [Rx] Allergies/Adverse Reactions: Allergies JOAQUIM Inhibitors Allergy (Verified 12/26/14 15:50) Swelling of Lip/Tongue/Throat Procedures/tests Complete & Pending: Procedures Performed prior 72 hours Category Date Time Status EV echocardiogram Routine Y 08/12/16 16:40 Completed Date of admission: 08/11/16 16:07 Primary care physician: Boris Ovalles Jr, MD Consults: 08/11/16 16:38 Consult to Physical Therapy [CONS] Routine Comment: Evaluate, develop and implement POC 08/12/16 11:38 Consult to Occupational Therapy [CONS] Routine Comment: Evaluate, develop and implement POC Discharging clinician: Clemente Riggs Anticipated date of discharge: 08/13/16 - Patient Status Disposition: Home, Self-Care Condition: Good Functional capacity at discharge: independent ambulation Overall status at discharge: patient is progressing back to baseline - Discharge Instructions Instructions: Urinary Tract Infection in Women (DC), Sepsis (DC) Follow Up With: Boris Ovalles Jr, MD [Primary Care Provider] - 08/20/16 10:40 am (Located in the medical office building, [address] ) - Diet and Activity Activity: increase activity as tolerated Diet: advance to your usual diet Hospital course: Ms. Paiz is a 80 year old female who is admitted to [facility] with a urinary tract infection. There was concerns for possible sepsis given her leukocytosis and tachycardia. However no blood cultures were drawn. However clinically she was also complaining of severe left wrist and right hip bone pain as well as some low back pain. X-ray of the wrist and reveal chondrocalcinosis. Additionally she had markedly elevated inflammatory markers. She was treated with antibiotics as well as prednisone and steroids and had a marketed clinical improvement. Her leukocytosis did trend down to however there is a slight trend up on today's labs however she did receive steroids yesterday. I think most likely this patient was not septic or rather she had sirs criteria met from her inflammation. Today she is ambulating on her own. No difficulty eating drinking having normal bowel and bladder function. No major abnormalities with her vitals are labs. Plan is to discharge her home with by mouth Macrobid. Urine cultures did grow pansensitive Escherichia coli. We will treat her for complicated urinary tract infection for a total of 14 days and then we will continue her on prophylactic nitrofurantoin until she can have her prolapse bladder surgically corrected. We will discharge her on naproxen for her pseudogout. She stated that she does have a follow-up appointment with bone and joint that her family has set up for her. Patient voices back understanding and agreement to the above plan. - Time Spent with Patient Total time spent providing and/or coordinating discharge services: Greater than 30 minutes (approximately 40 minutes.) - Constitutional Vitals: Temp Pulse Resp BP Pulse Ox 98.4 F 76 18 136/76 96 08/13/16 11:19 08/13/16 11:19 08/13/16 11:19 08/13/16 11:19 08/13/16 11:19 General appearance: Present: A&O X 3, answers questions appropriately - Head Head exam: Present: atraumatic, normocephalic - Eye Eye exam: Present: PERRL, conjuntiva pink, sclera anicteric Pupils: Present: PERRL - Neck Neck exam general surgery: Present: supple, trachea midline. Absent: lymphadenopathy - Respiratory Respiratory exam: Present: CTAB. Absent: accessory muscle use, rales, rhonchi, wheezes - Cardiovascular Cardiovascular exam: Present: RRR, +S1, +S2. Absent: diastolic murmur, gallop, rubs, systolic murmur - GI/Abdominal GI/Abdominal exam: Present: normal bowel sounds, soft, no peritoneal signs. Absent: distended, tenderness - Extremities Exam Extremities exam: Present: warm, radial pulses palpable and symetrical. Absent : calf tenderness, cyanotic, pedal edema Additional comments: Left wrist is still painful with movement however she has marked improvement in range of motion. Less warmth with palpation less tenderness with palpation. - Skin Skin exam: Present: dry, intact <Moshe Vang Minoo - Last Filed: 08/13/16 16:12> Date of Encounter: 08/13/16 Procedures/tests Complete & Pending: Procedures Performed prior 72 hours Category Date Time Status EV echocardiogram Routine Y 08/12/16 16:40 Completed Date of admission: 08/11/16 16:07 Primary care physician: Boris Ovalles Jr, MD Consults: 08/11/16 16:38 Consult to Physical Therapy [CONS] Routine Comment: Evaluate, develop and implement POC 08/12/16 11:38 Consult to Occupational Therapy [CONS] Routine Comment: Evaluate, develop and implement POC Hospital course: Ms. Paiz is a 80 year old female - Time Spent with Patient Total time spent providing and/or coordinating discharge services: - Constitutional Vitals: Temp Pulse Resp BP Pulse Ox 98.4 F 76 18 136/76 96 08/13/16 11:19 08/13/16 11:19 08/13/16 11:19 08/13/16 11:19 08/13/16 11:19 - Attending Attestation I examined this patient and my medical decision-making was reviewed with the POCKET BUILDER/PA/Advanced Practice Nurse/Resident Physician. I agree with the documented findings, disposition and treatment plan as described except to the extent set forth below. D/C home today. Folow up with pcp and urology. Agree with Dr. Riggs.
[2016-08-13] MEDS: Acetaminophen 325 MG TABLET PO PRN (14:22)
== END 2016-08-13 15:49 | disposition home or self-care (01) | DRG 872 ==
LOC: 3BNU 10:56 → EMEROO 10:56 → 3ANU 15:00 → 2ANU 16:06
PROVIDERS: ADMIT Nurse Practitioner Acute Care; ATTEND Nurse Practitioner Family

== ENCOUNTER 2017-09-09 14:05 | Inpatient (IN) ==
--- NOTE | 2017-09-09 14:57 | Emergency Department Note ---
Disposition Clinical Impression: Sepsis Qualifiers: Sepsis type: sepsis due to unspecified organism Qualified Code(s): A41.9 - Sepsis, unspecified organism UTI (urinary tract infection) Qualifiers: Urinary tract infection type: site unspecified Hematuria presence: without hematuria Qualified Code(s): N39.0 - Urinary tract infection, site not specified Disposition: Admitted As Inpatient Condition: Fair Time of Disposition: 17:42 General Adult HPI - General Chief complaint: ED General Medical Stated complaint: "probably gots a UTI" Time Seen by Provider: 09/09/17 14:28 Source: patient Mode of arrival: ambulatory Limitations: no limitations Nursing Notes Reviewed: Yes Vital Signs Reviewed: Yes - History of Present Illness HPI Narrative: Patient is an 81-year-old female with past medical history of previous UTIs, hypertension, GERD. She reports that she has had to be hospitalized in the past due to urosepsis. She presents today due to subjective fevers and chills, nausea, vomiting, cloudy/dark urine, concern for UTI. She states that in the past, she has never had dysuria with her UTIs but usually does have nausea, vomiting, urine. She has had these symptoms since Thursday, approximately 5-6 days ago. She saw her urologist today, she reports that she had blood work that showed an elevated white blood cell count, urinalysis that showed UTI. She was given a shot of Rocephin 1 g and then discharged with Bactrim to take home. She reports that she was told if she had any new or worsening symptoms to return to the ER. She has had continued nausea, vomiting, continues to feel unwell and is requesting admission. Pain Scale: 0 - Related Data Home Medications Medication Instructions Recorded Confirmed Omeprazole [PriLOSEC] 20 mg PO DAILY 12/26/14 09/09/17 Amlodipine Besylate 10 mg PO DAILY 08/26/16 09/09/17 Previous Rx's Medication Instructions Recorded Sulfamethoxazole/Trimeth SS 1 each PO DAILY #30 tablet 08/26/16 [Bactrim SS] Allergies Allergy/AdvReac Type Severity Reaction Status Date / Time JOAQUIM Inhibitors Allergy Swelling Verified 09/09/17 16:30 of Lip/Tongue/Throat metronidazole [From Flagyl] AdvReac Gastrointestinal Verified 09/09/17 16:30 Upset All systems ED: reviewed and negative except as stated. Constitutional: Reports: fever Cardiovascular: Denies: chest pain Respiratory: Denies: cough, dyspnea Gastrointestinal: Reports: nausea, vomiting. Denies: abdominal pain, diarrhea, constipation Genitourinary: Reports: other (Cloudy urine). Denies: urgency, dysuria, frequency, hematuria, discharge, abnormal menses Musculoskeletal: Denies: back pain Neurological: Denies: headache, weakness, numbness, paresthesias Past Medical History - Past Medical History Attestation: Yes The following information was validated with the patient. Source: patient Medical history: Reports: GERD, hypertension, other Surgical history: Reports: cholecystectomy, hysterectomy, other Psychiatric history: Reports: no psych history - Social History Smoking Status: Never smoker Smokeless Tobacco Status: No Alcohol use: Reports: none Drug use: Reports: none Physical Exam - General General appearance: alert, other (Appears nauseous, holding emesis bag) - Head Head exam: atraumatic, normocephalic, normal inspection - Eye Eye exam: Present: normal appearance, PERRL, EOMI - ENT ENT exam: normal exam, normal oropharynx, mucous membranes moist - Neck Neck exam: Present: normal inspection, full ROM, trachea midline - Chest Chest inspection: Present: normal inspection, symmetric chest wall rise - Respiratory Respiratory exam: Present: normal lung sounds bilaterally - Cardiovascular Cardiovascular exam: Present: regular rate, normal rhythm, normal heart sounds - Abdominal Exam Abdominal exam: Present: soft, Non-Tender. Absent: tenderness, distention, guarding, rebound, rigidity, Haynes's sign, Rovsing's sign, tenderness at McBurney's Point - Extremities Exam Extremities exam: Present: normal inspection, full ROM. Absent: tenderness, pedal edema - Back Exam Back exam: Absent: CVA tenderness (R), CVA tenderness (L) - Neurological Exam Neurological exam: Present: alert, oriented X3 - Psychiatric Psychiatric exam: Present: normal affect, normal mood - Skin Skin exam: Present: warm, dry, intact, normal color Course Course Narrative: Patient was tachycardic on presentation, has elevated white blood cell count, evidence of UTI. She meets criteria for sepsis. Lactate and blood cultures were ordered. Patient also has evidence of acute kidney injury on BMP. CXR was obtained to assess for any pnuemonia as patient has been having subjective fevers, occasional cough. CXR was negative for pneumonia but did show small pulm nodule, this was discussed with the Patient was given 1 L normal saline bolus and HR improved to 90s. She was also given Zofran for nausea. Currently concerned for urosepsis. She already had 1 g of Rocephin given earlier today at urology office. We will admit the patient for further care at this time. Accepted by Dajuan Marley. Vital Signs Temperature 99.1 F 09/09/17 14:06 Pulse Rate 119 09/09/17 14:06 Respiratory Rate 19 09/09/17 14:06 Blood Pressure 166/95 09/09/17 14:06 O2 Sat by Pulse Oximetry 94 09/09/17 14:06 Temperature 99.1 F 09/09/17 14:06 Pulse Rate 97 09/09/17 16:08 Respiratory Rate 18 09/09/17 16:08 Blood Pressure 147/93 09/09/17 16:08 O2 Sat by Pulse Oximetry 95 09/09/17 16:08 Oxygen Delivery Oxygen Delivery Room Air Medical Decision Making - MDM Narrative Medical decision making narrative: Patient was tachycardic on presentation, has elevated white blood cell count, evidence of UTI. She meets criteria for sepsis. Lactate and blood cultures were ordered. Patient also has evidence of acute kidney injury on BMP. CXR was obtained to assess for any pnuemonia as patient has been having subjective fevers, occasional cough. CXR was negative for pneumonia but did show small pulm nodule, this was discussed with the Patient was given 1 L normal saline bolus and HR improved to 90s. She was also given Zofran for nausea. Currently concerned for urosepsis. She already had 1 g of Rocephin given earlier today at urology office. We will admit the patient for further care at this time. Accepted by Dajuan Marley. - Medical Records Medical records reviewed: Yes I reviewed the patient's medical records. - Lab Data Lab results reviewed: Yes I reviewed the patient's lab results. Result diagrams: 09/09/17 15:18 09/09/17 15:18 Lab Results 09/09/17 09/09/17 09/09/17 Range/Units 14:32 15:18 15:18 WBC 12.8 H (4.3-11.1) K/mcL RBC 4.18 (3.82-4.97) M/mcL Hgb 11.0 L (11.5-15.4) g/dL Hct 33.9 L (35.3-44.9) % MCV 81.1 L (83.0-100.0) fL MCH 26.3 L (28.0-33.3) pg MCHC 32.4 (31.6-35.5) g/dL RDW 16.2 H (11.5-14.5) % Plt Count 396 (140-400) K/mcL MPV 9.4 (9.4-12.4) fL Immature Gran % 0.6 (0-4) % Seg Neutrophils % 69.7 % Lymphocytes % 18.4 % Monocytes % 9.3 % Eosinophils % 1.5 % Basophils % 0.5 % Neutrophils # 8.9 (1.6-8.9) K/mcL Lymphocytes # 2.3 (0.6-4.6) K/mcL Monocytes # 1.2 (0.0-1.3) K/mcL Eosinophils # 0.2 (0.0-0.6) K/mcL Basophils # 0.1 (0.0-0.2) K/mcL Sodium 136 (136-145) mEq/L Potassium 3.4 L (3.5-5.1) mEq/L Chloride 103 (98-107) mEq/L Carbon Dioxide 20 L (23-29) mEq/L BUN 22 (8-23) mg/dL Creatinine 1.39 H (0.60-1.20) mg/dL Est GFR ( Amer) 44 L (> 60) Est GFR (Non-Af Amer) 36 L (> 60) BUN/Creatinine Ratio 16 (6-26) Glucose 95 (70-105) mg/dL Calculated Osmolality 285 (280-300) Lactic Acid (0.5-2.2) mmol/L Calcium 9.0 (8.6-10.3) mg/dL Urine Color Yellow (Yellow) Urine Clarity Turbid A (Clear) Urine pH 6.0 (5.0-8.0) pH Units Ur Specific [place] 1.017 (1.010-1.025) Urine Protein 100 H (Neg-Trace) mg/dL Urine Glucose (UA) Normal (Normal) mg/dL Urine Ketones Negative (Negative) mg/dL Urine Blood Large H (Negative) Urine Nitrite Negative (Negative) Urine Bilirubin Negative (Negative) Urine Urobilinogen Normal (Normal) mg/dL Ur Leukocyte Esterase Large H (Negative) Urine Microscopic RBC TNTC H (0-3) per hpf Urine Microscopic WBC TNTC H (0-3) per hpf Ur Squamous Epith Cells Many H (None-Few) per lpf Urine Bacteria None Seen (None-Few) per hpf Hyaline Casts None Seen (None-Few) per lpf Ur Culture Indicated? NO. A (NO) 09/09/17 Range/Units 16:12 WBC (4.3-11.1) K/mcL RBC (3.82-4.97) M/mcL Hgb (11.5-15.4) g/dL Hct (35.3-44.9) % MCV (83.0-100.0) fL MCH (28.0-33.3) pg MCHC (31.6-35.5) g/dL RDW (11.5-14.5) % Plt Count (140-400) K/mcL MPV (9.4-12.4) fL Immature Gran % (0-4) % Seg Neutrophils % % Lymphocytes % % Monocytes % % Eosinophils % % Basophils % % Neutrophils # (1.6-8.9) K/mcL Lymphocytes # (0.6-4.6) K/mcL Monocytes # (0.0-1.3) K/mcL Eosinophils # (0.0-0.6) K/mcL Basophils # (0.0-0.2) K/mcL Sodium (136-145) mEq/L Potassium (3.5-5.1) mEq/L Chloride (98-107) mEq/L Carbon Dioxide (23-29) mEq/L BUN (8-23) mg/dL Creatinine (0.60-1.20) mg/dL Est GFR ( Amer) (> 60) Est GFR (Non-Af Amer) (> 60) BUN/Creatinine Ratio (6-26) Glucose (70-105) mg/dL Calculated Osmolality (280-300) Lactic Acid 0.7 (0.5-2.2) mmol/L Calcium (8.6-10.3) mg/dL Urine Color (Yellow) Urine Clarity (Clear) Urine pH (5.0-8.0) pH Units Ur Specific [place] (1.010-1.025) Urine Protein (Neg-Trace) mg/dL Urine Glucose (UA) (Normal) mg/dL Urine Ketones (Negative) mg/dL Urine Blood (Negative) Urine Nitrite (Negative) Urine Bilirubin (Negative) Urine Urobilinogen (Normal) mg/dL Ur Leukocyte Esterase (Negative) Urine Microscopic RBC (0-3) per hpf Urine Microscopic WBC (0-3) per hpf Ur Squamous Epith Cells (None-Few) per lpf Urine Bacteria (None-Few) per hpf Hyaline Casts (None-Few) per lpf Ur Culture Indicated? (NO) - Radiology Data Radiology results reviewed: Yes I reviewed the patient's radiology results. Chest X-Ray 09/09/17 14:55 IMPRESSION: 1. No acute pneumonia. 2. New 1.1 cm nodular density of the lateral left lung base. Further evaluation with CT thorax without contrast is recommended. D/ / 09/09/2017 15:22:38 Heri Tee MD / bennett Interpreting Provider: Heri Tee MD [facility] - [facility] Situation: Demographics, MOA Background: Presenting Complaint, Relevant PMH, Meds, & Allergies Assessment: Vital Signs, Course and respsone to treatment, Exam Concerns, Patient/Family Expectation, Pertinant Lab Results, Outstanding Labs Recommendation: Barrier(s) to disposition, Recommendation based on pending studies, treatments, or consults [facility].B.A.[facility] Report Given to: Dajuan Marley
[2017-09-09 15:01] LABS: Bilirubin,Urine Negative (Negative); Blood,Urine Large (Negative); Clarity,Urine Turbid (Clear); Color,Urine Yellow (Yellow); Glucose,Urine (UA) Normal (Normal); Ketones,Urine Negative (Negative); Leukocyte Esterase,Urine Large (Negative); Nitrite,Urine Negative (Negative); Protein,Urine 100 mg/dL (Neg-Trace); Specific Gravity,Urine 1.017 (1.010-1.025); Urobilinogen,Urine Normal (Normal)
[2017-09-09 15:02] LABS: Bacteria,Urine None Seen per hpf (None-Few); Hyaline Casts,Urine None Seen per lpf (None-Few); RBC,Urine TNTC per hpf (0-3); Squamous Epithelial Cell,Urine Many per lpf (None-Few); WBC,Urine TNTC per hpf (0-3)
[2017-09-09] MEDS ORDERED: 0.9 % Sodium Chloride 1,000 ML IVC ONE (15:20)
[2017-09-09 15:31] LABS: Basophils # 0.1 K/mcL (0.0-0.2); Basophils % 0.5 %; Eosinophils # 0.2 K/mcL (0.0-0.6); Eosinophils % 1.5 %; Hematocrit 33.9 % (35.3-44.9); Immature Granulocytes % 0.6 % (0-4); Lymphocytes # 2.3 K/mcL (0.6-4.6); Lymphocytes % 18.4 %; Mean Corpuscular HGB Conc 32.4 g/dL (31.6-35.5); Mean Corpuscular Hemoglobin 26.3 pg (28.0-33.3); Mean Corpuscular Volume 81.1 fL (83.0-100.0); Mean Platelet Volume 9.4 fL (9.4-12.4); Monocytes # 1.2 K/mcL (0.0-1.3); Monocytes % 9.3 %; Neutrophils # 8.9 K/mcL (1.6-8.9); Platelet Count 396 K/mcL (140-400); Red Blood Count 4.18 M/mcL (3.82-4.97); Red Cell Distribution Width 16.2 % (11.5-14.5); Segmented Neutrophils % 69.7 %
[2017-09-09 15:50] LABS: Potassium 3.4 mEq/L (3.5-5.1)
[2017-09-09] MEDS ORDERED: Ondansetron 4 MG/2 ML VIAL IVP ONE (15:58)
--- NOTE | 2017-09-09 17:13 | Emergency Department Note ---
Disposition Clinical Impression: Sepsis Qualifiers: Sepsis type: sepsis due to unspecified organism Qualified Code(s): A41.9 - Sepsis, unspecified organism UTI (urinary tract infection) Qualifiers: Urinary tract infection type: site unspecified Hematuria presence: without hematuria Qualified Code(s): N39.0 - Urinary tract infection, site not specified Disposition: Admitted As Inpatient Condition: Fair General Adult HPI - General Chief complaint: ED General Medical Stated complaint: "probably gots a UTI" Time Seen by Provider: 09/09/17 14:28 Source: patient Mode of arrival: ambulatory Limitations: no limitations - History of Present Illness Pain Scale: 0 - Related Data Home Medications Medication Instructions Recorded Confirmed Omeprazole [PriLOSEC] 20 mg PO DAILY 12/26/14 09/09/17 Amlodipine Besylate 10 mg PO DAILY 08/26/16 09/09/17 Previous Rx's Medication Instructions Recorded Sulfamethoxazole/Trimeth SS 1 each PO DAILY #30 tablet 08/26/16 [Bactrim SS] Allergies Allergy/AdvReac Type Severity Reaction Status Date / Time JOAQUIM Inhibitors Allergy Swelling Verified 09/09/17 16:30 of Lip/Tongue/Throat metronidazole [From Flagyl] AdvReac Gastrointestinal Verified 09/09/17 16:30 Upset Constitutional: Reports: fever Cardiovascular: Denies: chest pain Respiratory: Denies: cough, dyspnea Gastrointestinal: Reports: nausea, vomiting. Denies: abdominal pain, diarrhea, constipation Genitourinary: Reports: other (Cloudy urine). Denies: urgency, dysuria, frequency, hematuria, discharge, abnormal menses Musculoskeletal: Denies: back pain Neurological: Denies: headache, weakness, numbness, paresthesias Past Medical History - Past Medical History Medical history: Reports: GERD, hypertension, other Surgical history: Reports: cholecystectomy, hysterectomy, other Psychiatric history: Reports: no psych history - Social History Smoking Status: Never smoker Smokeless Tobacco Status: No Alcohol use: Reports: none Drug use: Reports: none Physical Exam - General Limitations: no limitations General appearance: alert Course Vital Signs Temperature 99.1 F 09/09/17 14:06 Pulse Rate 119 09/09/17 14:06 Respiratory Rate 19 09/09/17 14:06 Blood Pressure 166/95 09/09/17 14:06 O2 Sat by Pulse Oximetry 94 09/09/17 14:06 Temperature 99.1 F 09/09/17 14:06 Pulse Rate 97 09/09/17 16:08 Respiratory Rate 18 09/09/17 17:33 Blood Pressure 144/93 09/09/17 17:33 O2 Sat by Pulse Oximetry 95 09/09/17 16:08 Oxygen Delivery Oxygen Delivery Room Air Medical Decision Making - Lab Data Result diagrams: 09/09/17 15:18 09/09/17 15:18 Lab Results 09/09/17 09/09/17 09/09/17 Range/Units 14:32 15:18 15:18 WBC 12.8 H (4.3-11.1) K/mcL RBC 4.18 (3.82-4.97) M/mcL Hgb 11.0 L (11.5-15.4) g/dL Hct 33.9 L (35.3-44.9) % MCV 81.1 L (83.0-100.0) fL MCH 26.3 L (28.0-33.3) pg MCHC 32.4 (31.6-35.5) g/dL RDW 16.2 H (11.5-14.5) % Plt Count 396 (140-400) K/mcL MPV 9.4 (9.4-12.4) fL Immature Gran % 0.6 (0-4) % Seg Neutrophils % 69.7 % Lymphocytes % 18.4 % Monocytes % 9.3 % Eosinophils % 1.5 % Basophils % 0.5 % Neutrophils # 8.9 (1.6-8.9) K/mcL Lymphocytes # 2.3 (0.6-4.6) K/mcL Monocytes # 1.2 (0.0-1.3) K/mcL Eosinophils # 0.2 (0.0-0.6) K/mcL Basophils # 0.1 (0.0-0.2) K/mcL Sodium 136 (136-145) mEq/L Potassium 3.4 L (3.5-5.1) mEq/L Chloride 103 (98-107) mEq/L Carbon Dioxide 20 L (23-29) mEq/L BUN 22 (8-23) mg/dL Creatinine 1.39 H (0.60-1.20) mg/dL Est GFR ( Amer) 44 L (> 60) Est GFR (Non-Af Amer) 36 L (> 60) BUN/Creatinine Ratio 16 (6-26) Glucose 95 (70-105) mg/dL Calculated Osmolality 285 (280-300) Lactic Acid (0.5-2.2) mmol/L Calcium 9.0 (8.6-10.3) mg/dL Urine Color Yellow (Yellow) Urine Clarity Turbid A (Clear) Urine pH 6.0 (5.0-8.0) pH Units Ur Specific [place] 1.017 (1.010-1.025) Urine Protein 100 H (Neg-Trace) mg/dL Urine Glucose (UA) Normal (Normal) mg/dL Urine Ketones Negative (Negative) mg/dL Urine Blood Large H (Negative) Urine Nitrite Negative (Negative) Urine Bilirubin Negative (Negative) Urine Urobilinogen Normal (Normal) mg/dL Ur Leukocyte Esterase Large H (Negative) Urine Microscopic RBC TNTC H (0-3) per hpf Urine Microscopic WBC TNTC H (0-3) per hpf Ur Squamous Epith Cells Many H (None-Few) per lpf Urine Bacteria None Seen (None-Few) per hpf Hyaline Casts None Seen (None-Few) per lpf Ur Culture Indicated? NO. A (NO) 09/09/17 Range/Units 16:12 WBC (4.3-11.1) K/mcL RBC (3.82-4.97) M/mcL Hgb (11.5-15.4) g/dL Hct (35.3-44.9) % MCV (83.0-100.0) fL MCH (28.0-33.3) pg MCHC (31.6-35.5) g/dL RDW (11.5-14.5) % Plt Count (140-400) K/mcL MPV (9.4-12.4) fL Immature Gran % (0-4) % Seg Neutrophils % % Lymphocytes % % Monocytes % % Eosinophils % % Basophils % % Neutrophils # (1.6-8.9) K/mcL Lymphocytes # (0.6-4.6) K/mcL Monocytes # (0.0-1.3) K/mcL Eosinophils # (0.0-0.6) K/mcL Basophils # (0.0-0.2) K/mcL Sodium (136-145) mEq/L Potassium (3.5-5.1) mEq/L Chloride (98-107) mEq/L Carbon Dioxide (23-29) mEq/L BUN (8-23) mg/dL Creatinine (0.60-1.20) mg/dL Est GFR ( Amer) (> 60) Est GFR (Non-Af Amer) (> 60) BUN/Creatinine Ratio (6-26) Glucose (70-105) mg/dL Calculated Osmolality (280-300) Lactic Acid 0.7 (0.5-2.2) mmol/L Calcium (8.6-10.3) mg/dL Urine Color (Yellow) Urine Clarity (Clear) Urine pH (5.0-8.0) pH Units Ur Specific [place] (1.010-1.025) Urine Protein (Neg-Trace) mg/dL Urine Glucose (UA) (Normal) mg/dL Urine Ketones (Negative) mg/dL Urine Blood (Negative) Urine Nitrite (Negative) Urine Bilirubin (Negative) Urine Urobilinogen (Normal) mg/dL Ur Leukocyte Esterase (Negative) Urine Microscopic RBC (0-3) per hpf Urine Microscopic WBC (0-3) per hpf Ur Squamous Epith Cells (None-Few) per lpf Urine Bacteria (None-Few) per hpf Hyaline Casts (None-Few) per lpf Ur Culture Indicated? (NO) Attestation Statement - Attestation Attestation: I examined this patient and my medical decision-making was reviewed with the Resident Physician. I agree with the documented findings, disposition and treatment plan as described except to the extent set forth below. Mentating normally, does not meet qSOFA criteria for sepsis, but with evelated WBC and HR meets SIRS criteria. Hemodynamically stable.
--- NOTE | 2017-09-09 19:59 | Internal Med History&Physical ---
<Conrado Rubin - Last Filed: 09/09/17 21:54> Date of Encounter: 09/09/17 Time of Encounter: 19:57 Internal Medicine - H&P: HPI Chief complaint: Sepsis Admitted From: Emergency Dept Plans for Post Hospital Care: Home History of present illness: Ms. 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 Patient has not been attempted to treat symptoms prior to today. She does have a history of recurrent UTI's prior to 08/2016 in which she had UTI's on a "weekly" basis, but after having a colpoclesis she has not had a UTI since. Earlier during the day, patient presented to her PCP with these sx and she was given a shot of rocephin and home prescription of bactrim. On initial presentation to ED patient was septic with presumed source UTI, and started on fluids prior to admission. Patient denies vomiting, blood in urine, change in urine patterns, constipation, blood in stool, chest pain, sob, cardiac hx. Past Med Surg Social Fam HX - Past Medical History Medical history: arthritis, GERD, hypertension, other Psychiatric history: no psych history - Past Surgical History Surgical History: cholecystectomy, hysterectomy, other - Social History Smoking Status: Never smoker Smokeless Tobacco Status: No Alcohol use: none Drug use: none - Family History Mother Family Member Ethnicity: Non- Living Status: Hx Family Cardiac Disorders: No Hx Family Respiratory Disorders: No Hx Family Cancer: No Hx Family GI Disorders: No Hx Family Endocrine Disorder: No Hx Family Neuromuscular Disorders: No Hx Family Neurologic Disorders: No Hx Family HEENT Disorders: No Hx Family Autoimmune Disorders: No Internal Medicine - H&P: Meds Omeprazole [PriLOSEC] 20 mg PO DAILY 12/26/14 [History] Amlodipine Besylate 10 mg PO DAILY 08/26/16 [History] Sulfamethoxazole/Trimeth SS [Bactrim SS] 1 each PO DAILY #30 tablet 08/26/16 [Rx ] 3 Allergy/AdvReac Type Severity Reaction Status Date / Time JOAQUIM Inhibitors Allergy Swelling Verified 09/09/17 16:30 of Lip/Tongue/Throat metronidazole [From Flagyl] AdvReac Gastrointestinal Verified 09/09/17 16:30 Upset All Systems PM: A 10-system review of systems was performed and is negative for pertinent findings except as documented above in the HPI. - Constitutional Constitutional: anorexia, chills, fatigue, fever(s), weakness, no night sweats, no weight gain - EENT Eyes: no change in vision, no discharge, no pain, no photophobia Ears: no ear discharge, no ear pain, no tinnitus Nose, mouth and throat: no dysphagia, no nasal discharge, no neck pain, no sore throat - Cardiovascular Cardiovascular ROS IM: no chest pain, no diaphoresis, no dyspnea, no edema, no irregular heart rhythm, no lightheadedness, no orthopnea, no palpitations, no paroxysmal nocturnal dyspnea, no syncope - Respiratory Respiratory: no cough, no dyspnea, no dyspnea on exertion, no wheezing, no chest congestion, no excessive phlegm production - Gastrointestinal Gastrointestinal: no abdominal pain, no belching, no bloating, no change in bowel habits, no change in stool character, no coffee ground emesis, no constipation, no diarrhea, no excessive flatus, no fecal incontinence, no heartburn, no hematemesis, no hematochezia, no melena, no nausea, no vomiting - Genitourinary Genitourinary: no change in urinary stream, no difficulty urinating, no difficulty voiding, no dysuria, no flank pain, no hematuria, no hot flashes, no urinary frequency, no urinary hesitancy, no urinary incontinence, no urinary urgency - Musculoskeletal Musculoskeletal ROS IM: no numbness, no tingling - Integumentary Integumentary IM: no rash, no unusual bruising - Neurological Neurological ROS: no confusion, no convulsions, no focal weakness, no numbness, no tingling, no tremor(s) - Hematologic/Lymphatic Hematologic/Lymphatic: no easy bruising - Constitutional Vitals: Temp Pulse Resp BP Pulse Ox 100.6 F H 93 14 155/77 92 09/09/17 18:37 09/09/17 18:37 09/09/17 18:37 09/09/17 18:37 09/09/17 18:37 General appearance: Present: cooperative, mild distress, A&O X 3, answers questions appropriately - Head Head exam: Present: atraumatic, normocephalic - Eye Eye exam: Present: PERRL, conjuntiva pink, sclera anicteric Pupils: Present: PERRL - Neck Neck exam general surgery: Present: supple, trachea midline. Absent: lymphadenopathy - Respiratory Respiratory exam: Present: CTAB. Absent: accessory muscle use, chest wall tenderness, decreased breath sounds, prolonged expiratory phase, rales, respiratory distress, rhonchi, stridor, wheezes - Cardiovascular Cardiovascular exam: Present: RRR. Absent: diastolic murmur, gallop, rubs, systolic murmur - GI/Abdominal GI/Abdominal exam: Present: hypoactive bowel sounds, soft, no peritoneal signs. Absent: distended, firm, guarding, hernia, hepatomegaly, mass, rebound, rigid , splenomegaly, tenderness - Extremities Exam Extremities exam: Present: warm, radial pulses palpable and symmetrical. Absent : calf tenderness, cyanotic, pedal edema - Back Exam Back exam: Present: CVA tenderness (L), CVA tenderness (R) - Neurological Exam Neurological exam: Present: CN II-XII intact, oriented X3, no focal deficits. Absent: pronater drift, facial droop, speech deficit - Skin Skin exam: Present: dry, intact Internal Med - H&P Results - Labs CBC & Chem 7: 09/09/17 15:18 09/09/17 15:18 - Assessment and plan (1) Sepsis Current Visit: Yes Status: Acute Assessment and plan: Patient mets SIRS Criteria on admission (tachycardia, febrile, leukocytosis) with presumed source of UTI but cannot rule out other possible sources Patient has a previous hx of recurrent UTI's that resolved after colpocleisis in 08/2016 , and positive clinical symptoms. Patient has previously been positive for E. Coli and Pseudomonas. Unlikely cardiac or pulmonary etiology, CXR was negative for acute pulmonary process, and no clinical indications. Will further workup for sepsis. - continue IVF, encourage PO fluid intake - tylenol for temp control - monitor vitals closely - AM labs - reordered U/A - previous U/A was positive for leuk, and negative for nitrites but contained many Sq epilthelial cells. - started ceftriaxone (previous cx are pansensitive) Qualifiers: Sepsis type: sepsis due to unspecified organism Qualified Code(s): A41.9 - Sepsis, unspecified organism (2) Hypokalemia Current Visit: Yes Status: Acute Assessment and plan: on admission K+ was mildly decreased, will replenish with PO (3) UTI (urinary tract infection) Current Visit: Yes Status: Acute Assessment and plan: see above Qualifiers: Qualified Code(s): N39.0 - Urinary tract infection, site not specified (4) Acute kidney injury Current Visit: Yes Status: Acute Assessment and plan: Cr on admission 1.39, baseline 0.8. Will provide IVF support, and continue to monitor (5) Hypertension Current Visit: Yes Status: Chronic Assessment and plan: continue home Rx Qualifiers: Qualified Code(s): I10 - Essential (primary) hypertension (6) DVT prophylaxis Current Visit: Yes Status: Acute Assessment and plan: SQ heparin (7) GERD (gastroesophageal reflux disease) Current Visit: Yes Status: Acute Assessment and plan: currently controlled, will monitor for symptoms but will hold home Rx for now Qualifiers: Qualified Code(s): K21.9 - Gastro-esophageal reflux disease without esophagitis (8) Incidental lung nodule Current Visit: Yes Status: Acute Assessment and plan: 1.1 cm nodular density of lateral left lung base found on CXR, per CXR report recommend further workup with CT thorax. Will setup appointment outpatient. - Time Spent With Patient Total time spent is greater than 50% in coordination of care (as documented) at patient's floor/unit and/or counseling patient: <DeyaniraGil P - Last Filed: 09/10/17 10:47> Date of Encounter: 09/10/17 Internal Medicine - H&P: HPI History of present illness: Ms. Paiz is a 81 year old female All Systems PM: A 10-system review of systems was performed and is negative for pertinent findings except as documented above in the HPI. - Constitutional Vitals: Temp Pulse Resp BP Pulse Ox 98.8 F 85 17 122/65 91 09/10/17 07:54 09/10/17 07:54 09/10/17 07:54 09/10/17 07:54 09/10/17 08:16 Internal Med - H&P Results - Labs CBC & Chem 7: 09/10/17 05:22 09/10/17 05:22 Labs: Short CBC 09/10/17 Range/Units 05:22 WBC 10.1 (4.3-11.1) K/mcL Hgb 10.4 L (11.5-15.4) g/dL Hct 32.2 L (35.3-44.9) % Plt Count 372 (140-400) K/mcL Neutrophils # 6.7 (1.6-8.9) K/mcL BMP 09/10/17 05:22 Sodium 141 Potassium 4.0 Chloride 110 H Carbon Dioxide 19 L BUN 18 Creatinine 1.29 H Glucose 97 Calcium 8.7 Liver Function 09/10/17 Range/Units 05:22 Total Bilirubin 0.4 (0.3-1.0) mg/dL AST 23 (13-39) Units/L ALT 26 (7-52) Units/L Alkaline Phosphatase 160 H (34-104) Units/L Albumin 3.3 L (3.5-5.7) g/dL - Impressions ITS Impressions Abdomen/Pelvis CT 09/09/17 20:51 IMPRESSION: Cystitis with features suspicious for ascending urinary tract infection and pyelonephritis. Correlate with urinalysis. Large hiatal hernia. Hepatic steatosis. D/ / 09/10/2017 07:29:46 Amador Bragg / dontrell Interpreting Provider: Amador Bragg - Attending Attestation I examined this patient and my medical decision-making was reviewed with the Resident Physician. I agree with the documented findings, disposition and treatment plan as described except to the extent set forth below. Outpatient CT scan of the chest. - Assessment and plan (1) Sepsis Current Visit: Yes Status: Acute Qualifiers: Sepsis type: sepsis due to unspecified organism Qualified Code(s): A41.9 - Sepsis, unspecified organism (2) UTI (urinary tract infection) Current Visit: Yes Status: Acute Qualifiers: Qualified Code(s): N39.0 - Urinary tract infection, site not specified (3) Hypertension Current Visit: Yes Status: Chronic Qualifiers: Qualified Code(s): I10 - Essential (primary) hypertension (4) DVT prophylaxis Current Visit: Yes Status: Acute (5) GERD (gastroesophageal reflux disease) Current Visit: Yes Status: Acute Qualifiers: Qualified Code(s): K21.9 - Gastro-esophageal reflux disease without esophagitis (6) Hypokalemia Current Visit: Yes Status: Acute (7) Acute kidney injury Current Visit: Yes Status: Acute (8) Incidental lung nodule Current Visit: Yes Status: Acute - Time Spent With Patient Total time spent is greater than 50% in coordination of care (as documented) at patient's floor/unit and/or counseling patient:
[2017-09-09] MEDS ORDERED: Naloxone 0.4 MG/ML INJ IVP PRN (20:01)
[2017-09-09 20:35] LABS: Albumin 3.5 g/dL (3.5-5.7); Albumin/Globulin Ratio 0.8 (1.1-2.2); Bilirubin,Direct 0.1 mg/dL (0.0-0.2); Bilirubin,Indirect 0.3 mg/dL (0.0-1.2); Bilirubin,Total 0.4 mg/dL (0.3-1.0); Globulin 4.4 g/dL (2.4-3.5); Total Protein 7.9 g/dL (6.4-8.9)
[2017-09-09] MEDS ORDERED: Piperacillin/Tazobactam 4.5 GM in 0.9 % Sodium Chloride Mini Bag 100 ML IVPB SCH (21:00)
[2017-09-09 21:02] LABS: INR 1.3; Prothrombin Time 13.6 Seconds (9.4-12.1)
[2017-09-09 21:04] LABS: Activated Partial Thrombo Time 31.1 Seconds (26.0-36.0)
[2017-09-09] MEDS: Acetaminophen 325 MG TABLET PO PRN (21:04)
[2017-09-09] MEDS: 0.9 % Sodium Chloride 1,000 ML IVC SCH (21:04)
--- NOTE | 2017-09-09 21:18 | Event Note ---
Date of Encounter: 09/10/17 Time of Encounter: 21:17 81/F seen and examined Multiple comorbid conditions. recurrent UTI Cultures reviewed. 1 episode with Pseudomonas/breast all Escherichia coli. Fortunately so far they are pansensitive. She is heading towards ESBL eventually. Ceftriaxone to begin with. May need an extensive workup to rule out any anatomical issues which is etiology for recurrent UTI. I have seen and examined this patient on 09/19/2017. I was supervising resident who has seen and examined this patient. I agree with the assessment and plan.
[2017-09-10] MEDS: *HR* Heparin 5,000 UNIT/ML VIAL SQ SCH ×2 (06:17→17:58)
[2017-09-10 06:34] LABS: Albumin 3.3 g/dL (3.5-5.7); Albumin/Globulin Ratio 0.9 (1.1-2.2); Basophils # 0.1 K/mcL (0.0-0.2); Basophils % 0.7 %; Bilirubin,Total 0.4 mg/dL (0.3-1.0); Calcium 8.7 mg/dL (8.6-10.3); Eosinophils # 0.4 K/mcL (0.0-0.6); Eosinophils % 3.8 %; Globulin 3.8 g/dL (2.4-3.5); Hematocrit 32.2 % (35.3-44.9); Hemoglobin 10.4 g/dL (11.5-15.4); Immature Granulocytes % 1.2 % (0-4); Lymphocytes # 1.8 K/mcL (0.6-4.6); Lymphocytes % 18.2 %; Mean Corpuscular HGB Conc 32.3 g/dL (31.6-35.5); Mean Corpuscular Hemoglobin 26.6 pg (28.0-33.3); Mean Corpuscular Volume 82.4 fL (83.0-100.0); Mean Platelet Volume 9.5 fL (9.4-12.4); Monocytes % 9.9 %; Neutrophils # 6.7 K/mcL (1.6-8.9); Nucleated Red Blood Cells 0.4 /100 WBC (0); Platelet Count 372 K/mcL (140-400); Red Blood Count 3.91 M/mcL (3.82-4.97); Red Cell Distribution Width 16.4 % (11.5-14.5); Segmented Neutrophils % 66.2 %; Total Protein 7.1 g/dL (6.4-8.9)
[2017-09-10] MEDS ORDERED: cefTRIAXone 1,000 MG in Water for inj. (sterile) 20 ML 10 ML IVP SCH (09:00)
[2017-09-10] MEDS: amLODIPine 5 MG TABLET PO SCH (09:58)
[2017-09-10] MEDS: 0.9 % Sodium Chloride 1,000 ML IVC SCH (10:00)
--- NOTE | 2017-09-10 11:41 | Internal Med Progress Note ---
Date of Encounter: 09/10/17 Time of Encounter: 11:39 - Assessment and plan (1) Sepsis Current Visit: Yes Status: Acute Assessment and plan: Patient mets SIRS Criteria on admission (tachycardia, febrile, leukocytosis) with presumed source of UTI Patient has a previous hx of recurrent UTI's that resolved after colpocleisis in 08/2016, and positive clinical symptoms. Patient has previously been positive for E. Coli and Pseudomonas. Unlikely cardiac or pulmonary etiology, CXR was negative for acute pulmonary process, and no clinical indications. Will further workup for sepsis. - continue IVF, encourage PO fluid intake - tylenol for temp control - monitor vitals closely - AM labs - reordered U/A - previous U/A was positive for leuk, and negative for nitrites but contained many Sq epilthelial cells. She follows Dr. Mccormack from Urology as outpatient. Continue Rocephin and await cultures. Qualifiers: Sepsis type: sepsis due to unspecified organism Qualified Code(s): A41.9 - Sepsis, unspecified organism (2) UTI (urinary tract infection) Current Visit: Yes Status: Acute Assessment and plan: see above Qualifiers: Qualified Code(s): N39.0 - Urinary tract infection, site not specified (3) Hypertension Current Visit: Yes Status: Chronic Assessment and plan: Norvasc Qualifiers: Qualified Code(s): I10 - Essential (primary) hypertension (4) DVT prophylaxis Current Visit: Yes Status: Acute Assessment and plan: SQ heparin (5) GERD (gastroesophageal reflux disease) Current Visit: Yes Status: Acute Assessment and plan: currently controlled, will monitor for symptoms but will hold home Rx for now Qualifiers: Qualified Code(s): K21.9 - Gastro-esophageal reflux disease without esophagitis (6) Hypokalemia Current Visit: Yes Status: Acute Assessment and plan: On admission K+ was mildly decreased, continue PO replacement as needed (7) Acute kidney injury Current Visit: Yes Status: Acute Assessment and plan: Cr on admission 1.39, baseline 0.8. Will provide IVF support, Currently improving (8) Incidental lung nodule Current Visit: Yes Status: Acute Assessment and plan: 1.1 cm nodular density of lateral left lung base found on CXR, per CXR report recommend further workup with CT thorax. Will setup appointment outpatient. - Time Spent With Patient Total time spent is greater than 50% in coordination of care (as documented) at patient's floor/unit and/or counseling patient: - Subjective Interval history: No acute events. Patient had N/V, abdominal pain, and poor appetite on admission and now these have resolved. No fevers/chills. - Constitutional Vitals: Temp Pulse Resp BP Pulse Ox 98.8 F 85 17 122/65 91 09/10/17 07:54 09/10/17 07:54 09/10/17 07:54 09/10/17 07:54 09/10/17 08:16 General appearance: Present: cooperative, mild distress, A&O X 3, answers questions appropriately - Head Head exam: Present: atraumatic, normocephalic - Eye Eye exam: Present: PERRL, conjuntiva pink, sclera anicteric Pupils: Present: PERRL - Neck Neck exam general surgery: Present: supple, trachea midline. Absent: lymphadenopathy - Respiratory Respiratory exam: Present: CTAB. Absent: accessory muscle use, rales, rhonchi, wheezes - Cardiovascular Cardiovascular exam: Present: RRR, +S1, +S2. Absent: diastolic murmur, gallop, rubs, systolic murmur - GI/Abdominal GI/Abdominal exam: Present: normal bowel sounds, soft, no peritoneal signs. Absent: distended, tenderness - Extremities Exam Extremities exam: Present: warm, radial pulses palpable and symmetrical. Absent : calf tenderness, cyanotic, pedal edema - Neurological Exam Neurological exam: Present: CN II-XII intact, oriented X3, no focal deficits. Absent: pronater drift, facial droop, speech deficit - Skin Skin exam: Present: dry, intact Internal Medicine: Result - Labs CBC & Chem 7: 09/10/17 05:22 09/10/17 05:22 Labs: Short CBC 09/10/17 Range/Units 05:22 WBC 10.1 (4.3-11.1) K/mcL Hgb 10.4 L (11.5-15.4) g/dL Hct 32.2 L (35.3-44.9) % Plt Count 372 (140-400) K/mcL Neutrophils # 6.7 (1.6-8.9) K/mcL BMP 09/10/17 05:22 Sodium 141 Potassium 4.0 Chloride 110 H Carbon Dioxide 19 L BUN 18 Creatinine 1.29 H Glucose 97 Calcium 8.7 Liver Function 09/10/17 Range/Units 05:22 Total Bilirubin 0.4 (0.3-1.0) mg/dL AST 23 (13-39) Units/L ALT 26 (7-52) Units/L Alkaline Phosphatase 160 H (34-104) Units/L Albumin 3.3 L (3.5-5.7) g/dL - ABG Interpretation ABG results: PT/INR, D-dimer PT 13.6 Seconds (9.4-12.1) H 09/09/17 20:40 - Impressions Impressions Abdomen/Pelvis CT 09/09/17 20:51 IMPRESSION: Cystitis with features suspicious for ascending urinary tract infection and pyelonephritis. Correlate with urinalysis. Large hiatal hernia. Hepatic steatosis. D/ / 09/10/2017 07:29:46 Amador Bragg / dontrell Interpreting Provider: Amador Bragg Consult Discharge Plan - Plan Referrals: Boris Ovalles Jr, MD [Primary Care Provider] -
[2017-09-10] MEDS: Acetaminophen 325 MG TABLET PO PRN (15:21)
[2017-09-11 03:00] LABS: Acinetobacter baumannii by PCR Not Detected (Not Detect); Candida albicans by PCR Not Detected (Not Detect); Candida glabrata by PCR Not Detected (Not Detect); Candida krusei by PCR Not Detected (Not Detect); Candida parapsilosis by PCR Not Detected (Not Detect); Candida tropicalis by PCR Not Detected (Not Detect); Enterococcus by PCR Not Detected (Not Detect); Escherichia coli by PCR Not Detected (Not Detect); Klebsiella oxytoca by PCR Not Detected (Not Detect); Klebsiella pneumoniae by PCR Not Detected (Not Detect); Pseudomonas aeruginosa by PCR Not Detected (Not Detect); Serratia marcescens by PCR Not Detected (Not Detect); Staphylococcus aureus by PCR Not Detected (Not Detect); Streptococcus agalactiae(B)PCR Not Detected (Not Detect); Streptococcus by PCR Not Detected (Not Detect); Streptococcus pneumoniae PCR Not Detected (Not Detect); Streptococcus pyogenes (A) PCR Not Detected (Not Detect); vanA/B Vancomycin-Resist Genes Not Detected (Not Detect)
[2017-09-11 03:02] LABS: blaKPC Carbapenem-Resist Gene Not Detected (Not Detect); mecA Methicillin-Resist Gene ***DETECTED*** (Not Detect)
--- NOTE | 2017-09-11 03:35 | Event Note ---
Date of Encounter: 09/11/17 Time of Encounter: 03:15 Received call from RN in regards to + Methicillin resistant staph species in blood culture, unknown source. Patient lying comfortably at bedside. Denies feeling sick, denies chills, n/v. Vital signs stable. CXR without signs of pneumonia and new 1.1 cm nodular density of the lateral left lung base. Last echo 08/2016 unremarkable. Preliminary urine culture without growth. Source of infection unknown at this time. Continue Rocephin at this time for recurrent UTI, start Vancomycin for unknown source of Methicillin-Resistant Staph species. Repeat Blood culture x2, 2V CXR stat. Obtain sputum culture and echocardiogram. Down-escalate antibiotics pending sensitivities.
[2017-09-11] MEDS: *HR* Heparin 5,000 UNIT/ML VIAL SQ SCH ×2 (06:04→17:38)
[2017-09-11 06:11] LABS: Basophils # 0.1 K/mcL (0.0-0.2); Basophils % 0.8 %; Eosinophils # 0.4 K/mcL (0.0-0.6); Eosinophils % 3.8 %; Hematocrit 29.5 % (35.3-44.9); Hemoglobin 9.7 g/dL (11.5-15.4); Immature Granulocytes % 0.5 % (0-4); Lymphocytes # 2.3 K/mcL (0.6-4.6); Lymphocytes % 21.9 %; Mean Corpuscular HGB Conc 32.9 g/dL (31.6-35.5); Mean Corpuscular Hemoglobin 26.6 pg (28.0-33.3); Mean Corpuscular Volume 80.8 fL (83.0-100.0); Mean Platelet Volume 9.2 fL (9.4-12.4); Monocytes # 0.9 K/mcL (0.0-1.3); Monocytes % 8.9 %; Neutrophils # 6.8 K/mcL (1.6-8.9); Platelet Count 375 K/mcL (140-400); Red Blood Count 3.65 M/mcL (3.82-4.97); Red Cell Distribution Width 16.1 % (11.5-14.5); Segmented Neutrophils % 64.1 %
[2017-09-11 06:28] LABS: Calcium 8.8 mg/dL (8.6-10.3)
[2017-09-11] MEDS: Ondansetron 4 MG/2 ML VIAL IVP PRN (08:41)
[2017-09-11] MEDS: amLODIPine 5 MG TABLET PO SCH (09:44)
[2017-09-11] MEDS: cefTRIAXone 1,000 MG in Water for inj. (sterile) 20 ML 10 ML IVP SCH (09:44)
--- NOTE | 2017-09-11 12:33 | Internal Med Progress Note ---
Date of Encounter: 09/11/17 Time of Encounter: 12:29 - Assessment and plan (1) Sepsis Current Visit: Yes Status: Acute Assessment and plan: Patient mets SIRS Criteria on admission (tachycardia, febrile, leukocytosis) with presumed source of UTI Patient has a previous hx of recurrent UTI's that resolved after colpocleisis in 08/2016, and positive clinical symptoms. Patient has previously been positive for E. Coli and Pseudomonas. Unlikely cardiac or pulmonary etiology, CXR was negative for acute pulmonary process, and no clinical indications. Will further workup for sepsis. She follows Dr. Mccormack from Urology as outpatient. 09/11: Blood cultures returned G+ cocci, she was started on Vancomycin Source still likely UTI as findings on CT scan. - continue IVF, encourage PO fluid intake - Follow-up Echocardiogram for +MRSA blood cultures. Chest x-ray negative. Continue Rocephin and Vancomycin, follow up repeat blood cultures (09/11) Qualifiers: Sepsis type: sepsis due to unspecified organism Qualified Code(s): A41.9 - Sepsis, unspecified organism (2) Acute kidney injury Current Visit: Yes Status: Acute Assessment and plan: Cr on admission 1.39, yesterday 1.29, now only slight improvement to 1.25. Baseline usually 0.8. Continue IV fluids and monitor. (3) Hypertension Current Visit: Yes Status: Chronic Assessment and plan: Norvasc Qualifiers: Qualified Code(s): I10 - Essential (primary) hypertension (4) UTI (urinary tract infection) Current Visit: Yes Status: Acute Assessment and plan: see above Qualifiers: Qualified Code(s): N39.0 - Urinary tract infection, site not specified (5) DVT prophylaxis Current Visit: Yes Status: Acute Assessment and plan: SQ heparin (6) GERD (gastroesophageal reflux disease) Current Visit: Yes Status: Acute Assessment and plan: currently controlled, will monitor for symptoms but will hold home Rx for now Qualifiers: Qualified Code(s): K21.9 - Gastro-esophageal reflux disease without esophagitis (7) Hypokalemia Current Visit: Yes Status: Acute Assessment and plan: On admission K+ was mildly decreased, continue PO replacement as needed (8) Incidental lung nodule Current Visit: Yes Status: Acute - Time Spent With Patient Total time spent is greater than 50% in coordination of care (as documented) at patient's floor/unit and/or counseling patient: - Subjective Interval history: No acute events. Patient had N/V improves with Zofran. - Constitutional Vitals: Temp Pulse Resp BP Pulse Ox 98.8 F 93 16 134/82 92 09/11/17 11:32 09/11/17 11:32 09/11/17 11:32 09/11/17 11:32 09/11/17 11:32 General appearance: Present: cooperative, mild distress, A&O X 3, answers questions appropriately - Head Head exam: Present: atraumatic, normocephalic - Eye Eye exam: Present: PERRL, conjuntiva pink, sclera anicteric Pupils: Present: PERRL - Neck Neck exam general surgery: Present: supple, trachea midline. Absent: lymphadenopathy - Respiratory Respiratory exam: Present: CTAB. Absent: accessory muscle use, rales, rhonchi, wheezes - Cardiovascular Cardiovascular exam: Present: RRR, +S1, +S2. Absent: diastolic murmur, gallop, rubs, systolic murmur - GI/Abdominal GI/Abdominal exam: Present: normal bowel sounds, soft, no peritoneal signs. Absent: distended, tenderness - Extremities Exam Extremities exam: Present: warm, radial pulses palpable and symmetrical. Absent : calf tenderness, cyanotic, pedal edema - Neurological Exam Neurological exam: Present: CN II-XII intact, oriented X3, no focal deficits. Absent: pronater drift, facial droop, speech deficit - Skin Skin exam: Present: dry, intact Internal Medicine: Result - Labs CBC & Chem 7: 09/11/17 04:00 09/11/17 04:00 Labs: Short CBC 09/11/17 Range/Units 04:00 WBC 10.5 (4.3-11.1) K/mcL Hgb 9.7 L (11.5-15.4) g/dL Hct 29.5 L (35.3-44.9) % Plt Count 375 (140-400) K/mcL Neutrophils # 6.8 (1.6-8.9) K/mcL BMP 09/11/17 04:00 Sodium 141 Potassium 4.0 Chloride 111 H Carbon Dioxide 20 L BUN 13 Creatinine 1.25 H Glucose 99 Calcium 8.8 - ABG Interpretation ABG results: PT/INR, D-dimer PT 13.6 Seconds (9.4-12.1) H 09/09/17 20:40 - Impressions Impressions Abdomen/Pelvis CT 09/09/17 20:51 IMPRESSION: Cystitis with features suspicious for ascending urinary tract infection and pyelonephritis. Correlate with urinalysis. Large hiatal hernia. Hepatic steatosis. D/ / 09/10/2017 07:29:46 Amador Bragg / dontrell Interpreting Provider: Amador Bragg Chest X-Ray 09/11/17 03:29 IMPRESSION: No evidence of pneumonia. D/ / Amador Bragg / Amador Bragg Interpreting Provider: Amador Bragg Consult Discharge Plan - Plan Referrals: Boris vOalles Jr, MD [Primary Care Provider] -
[2017-09-11] MEDS: 0.9 % Sodium Chloride 1,000 ML IVC SCH (17:39)
[2017-09-11] MEDS: Acetaminophen 325 MG TABLET PO PRN (20:00)
[2017-09-12 05:43] LABS: Basophils # 0.1 K/mcL (0.0-0.2); Basophils % 0.7 %; Eosinophils # 0.4 K/mcL (0.0-0.6); Eosinophils % 3.3 %; Hematocrit 30.9 % (35.3-44.9); Hemoglobin 9.6 g/dL (11.5-15.4); Immature Granulocytes % 0.8 % (0-4); Lymphocytes % 16.9 %; Mean Corpuscular HGB Conc 31.1 g/dL (31.6-35.5); Mean Corpuscular Hemoglobin 24.9 pg (28.0-33.3); Mean Corpuscular Volume 80.3 fL (83.0-100.0); Mean Platelet Volume 9.2 fL (9.4-12.4); Monocytes % 8.4 %; Neutrophils # 8.2 K/mcL (1.6-8.9); Platelet Count 411 K/mcL (140-400); Red Blood Count 3.85 M/mcL (3.82-4.97); Red Cell Distribution Width 16.2 % (11.5-14.5); Segmented Neutrophils % 69.9 %
[2017-09-12] MEDS: *HR* Heparin 5,000 UNIT/ML VIAL SQ SCH ×2 (05:53→17:24)
[2017-09-12] MEDS: 0.9 % Sodium Chloride 1,000 ML IVC SCH ×2 (05:55→08:01)
[2017-09-12 06:06] LABS: Calcium 8.7 mg/dL (8.6-10.3); Potassium 3.7 mEq/L (3.5-5.1)
[2017-09-12] MEDS: cefTRIAXone 1,000 MG in Water for inj. (sterile) 20 ML 10 ML IVP SCH (08:00)
[2017-09-12] MEDS: amLODIPine 5 MG TABLET PO SCH (08:01)
--- NOTE | 2017-09-12 09:13 | Internal Med Progress Note ---
Date of Encounter: 09/12/17 Time of Encounter: 09:09 - Assessment and plan (1) Sepsis Current Visit: Yes Status: Acute Assessment and plan: Patient mets SIRS Criteria on admission (tachycardia, febrile, leukocytosis) with presumed source of UTI Patient has a previous hx of recurrent UTI's that resolved after colpocleisis in 08/2016, and positive clinical symptoms. Patient has previously been positive for E. Coli and Pseudomonas. Unlikely cardiac or pulmonary etiology, CXR was negative for acute pulmonary process, and no clinical indications. Will further workup for sepsis. She follows Dr. Mccormack from Urology as outpatient. 09/11: Blood cultures returned G+ cocci, - Source still likely UTI as findings on CT scan show likely pyelonephritis. - continue IVF, encourage PO fluid intake - Follow-up Echocardiogram for +MRSA blood cultures. Chest x-ray negative. Continue Rocephin, repeat blood cultures (09/11) no growth to date Prelim blood cultures state not S aureus, will DC vancomycin Qualifiers: Sepsis type: sepsis due to unspecified organism Qualified Code(s): A41.9 - Sepsis, unspecified organism (2) Acute kidney injury Current Visit: Yes Status: Acute Assessment and plan: Cr on admission 1.39, yesterday 1.29, now only slight improvement to 1.25. Now within normal limits, will DC IV fluids (3) Hypertension Current Visit: Yes Status: Chronic Assessment and plan: Norvasc SBP in 180s today, switch to cardiac diet. DC IV fluids Qualifiers: Qualified Code(s): I10 - Essential (primary) hypertension (4) UTI (urinary tract infection) Current Visit: Yes Status: Acute Assessment and plan: see above Qualifiers: Qualified Code(s): N39.0 - Urinary tract infection, site not specified (5) DVT prophylaxis Current Visit: Yes Status: Acute Assessment and plan: SQ heparin (6) GERD (gastroesophageal reflux disease) Current Visit: Yes Status: Acute Assessment and plan: currently controlled, will monitor for symptoms but will hold home Rx for now Qualifiers: Qualified Code(s): K21.9 - Gastro-esophageal reflux disease without esophagitis (7) Hypokalemia Current Visit: Yes Status: Acute Assessment and plan: On admission K+ was mildly decreased, continue PO replacement as needed (8) Incidental lung nodule Current Visit: Yes Status: Acute Assessment and plan: 1.1 cm nodular density of lateral left lung base found on CXR, per CXR report recommend further workup with CT thorax. Will setup appointment outpatient. - Time Spent With Patient Total time spent is greater than 50% in coordination of care (as documented) at patient's floor/unit and/or counseling patient: - Subjective Interval history: Patient complained of being sweaty overnight. T max was 99.7 F. - Constitutional Vitals: Temp Pulse Resp BP Pulse Ox 98.2 F 82 15 154/79 94 09/12/17 06:54 09/12/17 06:54 09/12/17 06:54 09/12/17 06:54 09/12/17 06:54 General appearance: Present: cooperative, mild distress, A&O X 3, answers questions appropriately - Head Head exam: Present: atraumatic, normocephalic - Eye Eye exam: Present: PERRL, conjuntiva pink, sclera anicteric Pupils: Present: PERRL - Neck Neck exam general surgery: Present: supple, trachea midline. Absent: lymphadenopathy - Respiratory Respiratory exam: Present: CTAB. Absent: accessory muscle use, rales, rhonchi, wheezes - Cardiovascular Cardiovascular exam: Present: RRR, +S1, +S2. Absent: diastolic murmur, gallop, rubs, systolic murmur - GI/Abdominal GI/Abdominal exam: Present: normal bowel sounds, soft, no peritoneal signs. Absent: distended, tenderness - Extremities Exam Extremities exam: Present: warm, radial pulses palpable and symmetrical. Absent : calf tenderness, cyanotic, pedal edema - Neurological Exam Neurological exam: Present: CN II-XII intact, oriented X3, no focal deficits. Absent: pronater drift, facial droop, speech deficit - Skin Skin exam: Present: dry, intact Internal Medicine: Result - Labs CBC & Chem 7: 09/12/17 05:13 09/12/17 05:13 Labs: Short CBC 09/12/17 Range/Units 05:13 WBC 11.7 H (4.3-11.1) K/mcL Hgb 9.6 L (11.5-15.4) g/dL Hct 30.9 L (35.3-44.9) % Plt Count 411 H (140-400) K/mcL Neutrophils # 8.2 (1.6-8.9) K/mcL BMP 09/12/17 05:13 Sodium 141 Potassium 3.7 Chloride 110 H Carbon Dioxide 22 L BUN 11 Creatinine 1.10 Glucose 106 H Calcium 8.7 - ABG Interpretation ABG results: PT/INR, D-dimer PT 13.6 Seconds (9.4-12.1) H 09/09/17 20:40 Consult Discharge Plan - Plan Referrals: Boris Ovalles Jr, MD [Primary Care Provider] -
[2017-09-12] MEDS: Acetaminophen 325 MG TABLET PO PRN ×2 (11:39→20:24)
[2017-09-12] MEDS: Ondansetron 4 MG/2 ML VIAL IVP PRN (20:24)
[2017-09-12 20:38] LABS: Bilirubin,Urine Negative (Negative); Blood,Urine Large (Negative); Clarity,Urine Cloudy (Clear); Color,Urine Yellow (Yellow); Glucose,Urine (UA) Normal (Normal); Ketones,Urine Negative (Negative); Leukocyte Esterase,Urine Moderate (Negative); Nitrite,Urine Negative (Negative); Protein,Urine Trace mg/dL (Neg-Trace); Specific Gravity,Urine 1.014 (1.010-1.025); Urobilinogen,Urine Normal (Normal)
[2017-09-12 20:43] LABS: RBC,Urine 30-50 per hpf (0-3); Squamous Epithelial Cell,Urine Few per lpf (None-Few)
[2017-09-13 04:52] LABS: Basophils # 0.1 K/mcL (0.0-0.2); Basophils % 0.6 %; Eosinophils # 0.4 K/mcL (0.0-0.6); Eosinophils % 3.3 %; Hematocrit 28.6 % (35.3-44.9); Hemoglobin 9.3 g/dL (11.5-15.4); Immature Granulocytes % 0.8 % (0-4); Lymphocytes # 2.5 K/mcL (0.6-4.6); Lymphocytes % 19.6 %; Mean Corpuscular HGB Conc 32.5 g/dL (31.6-35.5); Mean Corpuscular Hemoglobin 26.5 pg (28.0-33.3); Mean Corpuscular Volume 81.5 fL (83.0-100.0); Mean Platelet Volume 9.4 fL (9.4-12.4); Monocytes % 7.7 %; Neutrophils # 8.6 K/mcL (1.6-8.9); Platelet Count 404 K/mcL (140-400); Red Blood Count 3.51 M/mcL (3.82-4.97)
[2017-09-13 05:11] LABS: BUN/Creatinine Ratio 14 (6-26); Blood Urea Nitrogen 15 mg/dL (8-23); Calcium 8.6 mg/dL (8.6-10.3); Carbon Dioxide 24 mEq/L (23-29); Chloride 106 mEq/L (98-107); Glucose 106 mg/dL (70-105); Osmolality,Calculated 289 (280-300); Potassium 3.5 mEq/L (3.5-5.1); Sodium 139 mEq/L (136-145); Vancomycin,Trough 12 mcg/mL (5-10); eGFR For African Americans > 60 (> 60); eGFR For Non-African Americans 50 (> 60)
[2017-09-13] MEDS: *HR* Heparin 5,000 UNIT/ML VIAL SQ SCH ×2 (06:41→17:05)
[2017-09-13] MEDS: Acetaminophen 325 MG TABLET PO PRN ×2 (06:44→17:07)
[2017-09-13] MEDS: amLODIPine 5 MG TABLET PO SCH (09:20)
[2017-09-13] MEDS: cefTRIAXone 1,000 MG in Water for inj. (sterile) 20 ML 10 ML IVP SCH (09:32)
--- NOTE | 2017-09-13 11:55 | Internal Med Progress Note ---
Date of Encounter: 09/13/17 Time of Encounter: 11:49 - Assessment and plan (1) Sepsis Current Visit: Yes Status: Acute Assessment and plan: Patient mets SIRS Criteria on admission (tachycardia, febrile, leukocytosis) with presumed source of UTI Patient has a previous hx of recurrent UTI's that resolved after colpocleisis in 08/2016, and positive clinical symptoms. Patient has previously been positive for E. Coli and Pseudomonas. - Echocardiogram: No vegitations. - Chest x-ray: negative.Unlikely cardiac or pulmonary etiology, CXR was negative for acute pulmonary process, and no clinical indications. Will further workup for sepsis. - CT abdomen/pelvis: UTI/early pyelonephritis - Source likely UTI - Patient currently afebrile, hemodynamically stable, clinically feels well. - WBC slowly increasing, will need close monitoring and check CRP today. Blood culture (1 of 1 vial) from 09/09: MRSE Blood culture repeat (2 of 2 vials) from 09/11: no growth to date MRSE - Possibly contamination given her source is liekly UTI based on complaints and CT of abdomen/pelvis. Qualifiers: Sepsis type: sepsis due to unspecified organism Qualified Code(s): A41.9 - Sepsis, unspecified organism (2) UTI (urinary tract infection) Current Visit: Yes Status: Acute Assessment and plan: see above Qualifiers: Qualified Code(s): N39.0 - Urinary tract infection, site not specified (3) Acute kidney injury Current Visit: Yes Status: Acute Assessment and plan: Cr on admission 1.39, resolved after 3 days (4) Hypertension Current Visit: Yes Status: Chronic Assessment and plan: Norvasc Qualifiers: Qualified Code(s): I10 - Essential (primary) hypertension (5) GERD (gastroesophageal reflux disease) Current Visit: Yes Status: Acute Assessment and plan: currently controlled, will monitor for symptoms but will hold home Rx for now Qualifiers: Qualified Code(s): K21.9 - Gastro-esophageal reflux disease without esophagitis (6) Hypokalemia Current Visit: Yes Status: Acute Assessment and plan: On admission K+ was mildly decreased, continue PO replacement as needed (7) Incidental lung nodule Current Visit: Yes Status: Acute Assessment and plan: 1.1 cm nodular density of lateral left lung base found on CXR, per CXR report recommend further workup with CT thorax. Will setup appointment outpatient. (8) DVT prophylaxis Current Visit: Yes Status: Acute Assessment and plan: SQ heparin - Time Spent With Patient Total time spent is greater than 50% in coordination of care (as documented) at patient's floor/unit and/or counseling patient: - Subjective Interval history: 09/12: Patient complained of being sweaty overnight. T max was 99.7 F. 09/13: no complaints, no acute events. - Constitutional Vitals: Temp Pulse Resp BP Pulse Ox 98.6 F 81 17 135/72 94 09/13/17 10:32 09/13/17 10:32 09/13/17 10:32 09/13/17 10:32 09/13/17 10:32 General appearance: Present: cooperative, mild distress, A&O X 3, answers questions appropriately - Head Head exam: Present: atraumatic, normocephalic - Eye Eye exam: Present: PERRL, conjuntiva pink, sclera anicteric Pupils: Present: PERRL - Neck Neck exam general surgery: Present: supple, trachea midline. Absent: lymphadenopathy - Respiratory Respiratory exam: Present: CTAB. Absent: accessory muscle use, rales, rhonchi, wheezes - Cardiovascular Cardiovascular exam: Present: RRR, +S1, +S2. Absent: diastolic murmur, gallop, rubs, systolic murmur - GI/Abdominal GI/Abdominal exam: Present: normal bowel sounds, soft, no peritoneal signs. Absent: distended, tenderness - Extremities Exam Extremities exam: Present: warm, radial pulses palpable and symmetrical. Absent : calf tenderness, cyanotic, pedal edema - Neurological Exam Neurological exam: Present: CN II-XII intact, oriented X3, no focal deficits. Absent: pronater drift, facial droop, speech deficit - Skin Skin exam: Present: dry, intact Internal Medicine: Result - Labs CBC & Chem 7: 09/13/17 03:48 09/13/17 03:48 Labs: Short CBC 09/13/17 Range/Units 03:48 WBC 12.6 H (4.3-11.1) K/mcL Hgb 9.3 L (11.5-15.4) g/dL Hct 28.6 L (35.3-44.9) % Plt Count 404 H (140-400) K/mcL Neutrophils # 8.6 (1.6-8.9) K/mcL BMP 09/13/17 03:48 Sodium 139 Potassium 3.5 Chloride 106 Carbon Dioxide 24 BUN 15 Creatinine 1.05 Glucose 106 H Calcium 8.6 Urine 09/12/17 Range/Units 19:25 Urine Color Yellow (Yellow) Urine Clarity Cloudy A (Clear) Urine pH 6.0 (5.0-8.0) pH Units Ur Specific Golden 1.014 (1.010-1.025) Urine Protein Trace (Neg-Trace) mg/dL Urine Glucose (UA) Normal (Normal) mg/dL - ABG Interpretation ABG results: PT/INR, D-dimer PT 13.6 Seconds (9.4-12.1) H 09/09/17 20:40 Consult Discharge Plan - Plan Referrals: Boris Ovalles Jr, MD [Primary Care Provider] -
[2017-09-13 15:43] LABS: C-Reactive Protein 74 mg/L (Less than 10)
[2017-09-14 05:13] LABS: Basophils # 0.1 K/mcL (0.0-0.2); Basophils % 0.6 %; Eosinophils # 0.4 K/mcL (0.0-0.6); Hematocrit 29.8 % (35.3-44.9); Hemoglobin 9.3 g/dL (11.5-15.4); Immature Granulocytes % 0.8 % (0-4); Lymphocytes % 15.3 %; Mean Corpuscular HGB Conc 31.2 g/dL (31.6-35.5); Mean Corpuscular Hemoglobin 25.3 pg (28.0-33.3); Mean Platelet Volume 9.3 fL (9.4-12.4); Monocytes # 0.9 K/mcL (0.0-1.3); Monocytes % 7.1 %; Neutrophils # 9.3 K/mcL (1.6-8.9); Platelet Count 438 K/mcL (140-400); Red Blood Count 3.68 M/mcL (3.82-4.97); Red Cell Distribution Width 16.1 % (11.5-14.5); Segmented Neutrophils % 73.2 %
[2017-09-14] MEDS: Acetaminophen 325 MG TABLET PO PRN ×2 (05:22→17:09)
[2017-09-14] MEDS: *HR* Heparin 5,000 UNIT/ML VIAL SQ SCH ×2 (05:23→17:09)
[2017-09-14 05:34] LABS: Calcium 8.7 mg/dL (8.6-10.3); Potassium 3.5 mEq/L (3.5-5.1)
[2017-09-14] MEDS: amLODIPine 5 MG TABLET PO SCH (08:08)
[2017-09-14] MEDS: cefTRIAXone 1,000 MG in Water for inj. (sterile) 20 ML 10 ML IVP SCH (08:08)
[2017-09-14] MEDS ORDERED: Aminoglycoside Consult 1 EACH MC ONE (08:17)
--- NOTE | 2017-09-14 17:07 | Internal Med Progress Note ---
Date of Encounter: 09/14/17 Time of Encounter: 17:05 - Assessment and plan (1) Sepsis Current Visit: Yes Status: Acute Assessment and plan: Patient mets SIRS Criteria on admission (tachycardia, febrile, leukocytosis) with presumed source of UTI Patient has a previous hx of recurrent UTI's that resolved after colpocleisis in 08/2016, and positive clinical symptoms. Patient has previously been positive for E. Coli and Pseudomonas. - Echocardiogram: No vegitations. - Chest x-ray: negative.Unlikely cardiac or pulmonary etiology, CXR was negative for acute pulmonary process, and no clinical indications. Will further workup for sepsis. - CT abdomen/pelvis: UTI/early pyelonephritis - Source likely UTI - Patient currently afebrile, hemodynamically stable, clinically feels well Blood culture (1 of 1 vial) from 09/09: S epi - possibly contaminate Blood culture repeat (2 of 2 vials) from 09/11: no growth to date - WBC slowly increasing CRP on 09/13 was 75 and today is 90. Concern for progression of infection Consult ID Qualifiers: Sepsis type: sepsis due to unspecified organism Qualified Code(s): A41.9 - Sepsis, unspecified organism (2) UTI (urinary tract infection) Current Visit: Yes Status: Acute Assessment and plan: see above Qualifiers: Qualified Code(s): N39.0 - Urinary tract infection, site not specified (3) Acute kidney injury Current Visit: Yes Status: Acute Assessment and plan: Cr on admission 1.39, resolved, today has increased to 1.2 but this may be patient's baseline. (4) Hypertension Current Visit: Yes Status: Chronic Assessment and plan: [facility] Qualifiers: Qualified Code(s): I10 - Essential (primary) hypertension (5) GERD (gastroesophageal reflux disease) Current Visit: Yes Status: Acute Assessment and plan: currently controlled, will monitor for symptoms but will hold home Rx for now Qualifiers: Qualified Code(s): K21.9 - Gastro-esophageal reflux disease without esophagitis (6) Hypokalemia Current Visit: Yes Status: Acute Assessment and plan: On admission K+ was mildly decreased, continue PO replacement as needed (7) Incidental lung nodule Current Visit: Yes Status: Acute Assessment and plan: 1.1 cm nodular density of lateral left lung base found on CXR, per CXR report recommend further workup with CT thorax. Will setup appointment outpatient. (8) DVT prophylaxis Current Visit: Yes Status: Acute Assessment and plan: SQ heparin - Time Spent With Patient Total time spent is greater than 50% in coordination of care (as documented) at patient's floor/unit and/or counseling patient: - Subjective Interval history: 09/12: Patient complained of being sweaty overnight. T max was 99.7 F. 09/13: no complaints, no acute events. 09/14: patient currently has no complaints, afebrile, no acute events overnight. - Constitutional Vitals: Temp Pulse Resp BP Pulse Ox 99.0 F 88 18 120/60 92 09/14/17 15:14 09/14/17 15:14 09/14/17 15:14 09/14/17 15:14 09/14/17 15:14 General appearance: Present: cooperative, mild distress, A&O X 3, answers questions appropriately - Head Head exam: Present: atraumatic, normocephalic - Eye Eye exam: Present: PERRL, conjuntiva pink, sclera anicteric Pupils: Present: PERRL - Neck Neck exam general surgery: Present: supple, trachea midline. Absent: lymphadenopathy - Respiratory Respiratory exam: Present: CTAB. Absent: accessory muscle use, rales, rhonchi, wheezes - Cardiovascular Cardiovascular exam: Present: RRR, +S1, +S2. Absent: diastolic murmur, gallop, rubs, systolic murmur - GI/Abdominal GI/Abdominal exam: Present: normal bowel sounds, soft, no peritoneal signs. Absent: distended, tenderness - Extremities Exam Extremities exam: Present: warm, radial pulses palpable and symmetrical. Absent : calf tenderness, cyanotic, pedal edema - Neurological Exam Neurological exam: Present: CN II-XII intact, oriented X3, no focal deficits. Absent: pronater drift, facial droop, speech deficit - Skin Skin exam: Present: dry, intact Internal Medicine: Result - Labs CBC & Chem 7: 09/14/17 04:26 09/14/17 04:26 Labs: Short CBC 09/14/17 Range/Units 04:26 WBC 12.8 H (4.3-11.1) K/mcL Hgb 9.3 L (11.5-15.4) g/dL Hct 29.8 L (35.3-44.9) % Plt Count 438 H (140-400) K/mcL Neutrophils # 9.3 H (1.6-8.9) K/mcL BMP 09/14/17 04:26 Sodium 138 Potassium 3.5 Chloride 107 Carbon Dioxide 23 BUN 16 Creatinine 1.25 H Glucose 107 H Calcium 8.7 - ABG Interpretation ABG results: PT/INR, D-dimer PT 13.6 Seconds (9.4-12.1) H 09/09/17 20:40 Consult Discharge Plan - Plan Referrals: Boris Ovalles Jr, MD [Primary Care Provider] -
[2017-09-14] MEDS: Ondansetron 4 MG/2 ML VIAL IVP PRN (23:18)
[2017-09-15 04:56] LABS: Basophils # 0.1 K/mcL (0.0-0.2); Basophils % 0.7 %; Eosinophils # 0.4 K/mcL (0.0-0.6); Eosinophils % 3.1 %; Hematocrit 29.2 % (35.3-44.9); Hemoglobin 9.6 g/dL (11.5-15.4); Immature Granulocytes % 0.8 % (0-4); Lymphocytes # 2.2 K/mcL (0.6-4.6); Lymphocytes % 18.6 %; Mean Corpuscular HGB Conc 32.9 g/dL (31.6-35.5); Mean Corpuscular Hemoglobin 26.4 pg (28.0-33.3); Mean Corpuscular Volume 80.2 fL (83.0-100.0); Mean Platelet Volume 9.1 fL (9.4-12.4); Monocytes # 0.9 K/mcL (0.0-1.3); Monocytes % 7.5 %; Neutrophils # 8.2 K/mcL (1.6-8.9); Platelet Count 449 K/mcL (140-400); Red Blood Count 3.64 M/mcL (3.82-4.97); Red Cell Distribution Width 16.1 % (11.5-14.5); Segmented Neutrophils % 69.3 %
[2017-09-15 05:19] LABS: Calcium 8.9 mg/dL (8.6-10.3); Potassium 3.6 mEq/L (3.5-5.1)
[2017-09-15] MEDS: *HR* Heparin 5,000 UNIT/ML VIAL SQ SCH ×2 (05:39→17:27)
[2017-09-15] MEDS: cefTRIAXone 1,000 MG in Water for inj. (sterile) 20 ML 10 ML IVP SCH (08:24)
[2017-09-15] MEDS: Acetaminophen 325 MG TABLET PO PRN ×2 (08:24→20:57)
[2017-09-15] MEDS: amLODIPine 5 MG TABLET PO SCH (08:24)
--- NOTE | 2017-09-15 10:47 | Infectious Disease Consult ---
Date of Encounter: 09/15/17 Time of Encounter: 10:43 Assessment and Plan (1) Sepsis Status: Acute Assessment and plan: Severe sepsis: The patient had to search criteria on admission with an acute kidney injury. Likely secondary to urinary tract infection and pyelonephritis. Improved. The patient continues to have leukocytosis, but it appears to be trending down and her differential is normal. She did have a low-grade fever yesterday, but nothing since then. Tachycardia has resolved. Blood cultures obtained September 09 were +1 out of 1 set for coag-negative staph. Repeat blood cultures September 11 are no growth to date 2 sets. Qualifiers: Sepsis type: sepsis due to unspecified organism Qualified Code(s): A41.9 - Sepsis, unspecified organism (2) UTI (urinary tract infection) Status: Acute Assessment and plan: Causative organism unclear. Urine culture obtained in the office 09/09/17 and in the ER 09/09/17 were both interpreted as grossly mixed chavo. CT of the abdomen and pelvis showed findings consistent with cystitis, ascending UTI, and pyelonephritis. Clinically improved on Rocephin. WBC appears to be trending down today. Continue Rocephin 1 gram IV daily for now (day 7). Duration of treatment depends on the clinical picture. Qualifiers: Urinary tract infection type: acute pyelonephritis Qualified Code(s): N10 - Acute pyelonephritis (3) Bacteremia Status: Acute Assessment and plan: Blood cultures drawn 09/09/17 x 1 set was positive for CONS. Likely a contaminant. Repeat blood cultures drawn 09/11/17 are NGTD x 2 sets. Received 3 days of Vancomycin. No further antibiotics required. (4) Acute kidney injury Status: Acute Assessment and plan: Likely secondary to sepsis. Resolved. Continue to trend. Dose-adjust medications. Avoid nephrotoxins as able. (5) Incidental lung nodule Status: Acute Assessment and plan: CXR showed left lateral base lung nodule. Pulmonary to evaluate as an outpatient. Infectious Disease HPI - Data of Consult Patient: new to practice Consult date: 09/15/17 Requesting Physician: Yuan Baumann MD Primary Care Provider: Boris Ovalles Jr, MD - Consult Narrative Reason for consult: UTI History of present illness: Ms. Paiz is a 81 year old female with a past medical history of UTIs, hypertension, and GERD. The patient was admitted to the hospital September 09 for urinary tract infection. We are consulted September 15 for further recommendations regarding urinary tract infection and persistent leukocytosis. Briefly, the patient's 81-year-old female with past medical history as stated above. The patient reports that she was having multiple recurrent urinary Tract infections until she underwent a colpoclesis back in 2016 and has not had any since then until now. She states that 5-6 days prior to admission she was having fever, chills, vomiting, and dark urine. She denied any dysuria. She did report some middle and lower back pain. She saw her urologist and had a urinalysis in the office that was positive and was given a dose of IM Rocephin and a prescription for Bactrim. She continued to have worsening symptoms that she presented to the ER. Upon arrival, the patient had a low-grade fever and tachycardia with leukocytosis. She was otherwise hemodynamically stable. She was also noted to have an acute kidney injury with a serum creatinine of 1.39. Urinalysis was obtained that was positive for large amounts of leukocyte esterase, too numerous to count white blood cells, and many epithelial cells. The specimen was sent to microbiology and was interpreted as grossly mixed chavo and unable to interpret. She had a chest x-ray that was positive for a left lateral lung base pulmonary nodule, but no pneumonia. Blood cultures were obtained 1 set. She was started empirically on IV Rocephin and admitted to the hospital for further evaluation. Since admission, the patient's blood cultures came back +1 out of 1 set for staph epi. She did receive about 3 days of IV vancomycin while the final ID was being determined it was discontinued yesterday. She had a CT the abdomen and pelvis which showed findings consistent with cystitis with features consistent with an ascending UTI and pyelonephritis. There was also incidental findings of a large hiatal hernia and hepatic steatosis. Her white blood cell count did normalize, but did go back up to 12.8 thousand yesterday. It is mildly improved to 11.8 today. Her acute kidney injury has resolved. She did have a low-grade fever yesterday with a MAXIMUM TEMPERATURE of 100. Repeat CXR 09/11/17 was negative. She had a repeat urine culture on September 12 that was negative. She is currently on IV Rocephin. We have been asked to evaluate and make further recommendations. During my exam today, the patient states that overall she feels better, but not back to baseline. She reports low-grade fevers and chills at home, but denies any since being in the hospital. She denies headache or dizziness or neck pain. Denies congestion, earache, or sore throat. Denies chest pain, shortness of breath, or cough. Reports nausea with vomiting and anorexia prior to admission. She reports improvement in these symptoms, but states food still makes her a little queasy at times. Denies abdominal pain or dysuria. Reports her urine was dark and foul-smelling. Denies urinary frequency, hesitancy, or incontinence. Denies diarrhea. States with her UTIs in the past she has never had urinary symptoms. Denies oral thrush or new skin lesions. Reports she started having some lumbar back pain last week that radiated to the right leg and knee and saw her PCP. She received a Euflexxa injection in the right knee per ortho at that time. She reports her knee is still a little sore, but better. The patient lives at home alone. She has family nearby. 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 She denies tobacco, alcohol, or illicit drug use. She denies recent travel. She denies any animal exposure. CC: Yuan Baumann MD Past Med Surg Social Fam HX - Past Medical History Attestation: Yes The following information was validated with the patient. Source: patient, old records reviewed, nursing notes reviewed Medical history: arthritis, GERD, hypertension, other (recurrent UTI d/t prolapsed bladder) Psychiatric history: no psych history - Past Surgical History Surgical History: cholecystectomy, hysterectomy, other (Colpocleisis) - Social History Smoking Status: Never smoker Smokeless Tobacco Status: No Alcohol use: none Drug use: none Occupational status: employed Current living situation: Home - Independent Activity Level: Independent ambulation Recent Out of Country Travel Within the Last 8 Weeks: No Exposure or Possible Exposure to Illness During Travel: No - Family History Mother Family Member Ethnicity: Non- Living Status: Hx Family Cardiac Disorders: No Hx Family Respiratory Disorders: No Hx Family Cancer: No Hx Family GI Disorders: No Hx Family Endocrine Disorder: No Hx Family Neuromuscular Disorders: No Hx Family Neurologic Disorders: No Hx Family HEENT Disorders: No Hx Family Autoimmune Disorders: No Infectious Disease-CN:Meds Omeprazole [PriLOSEC] 20 mg PO DAILY 12/26/14 [History] Amlodipine Besylate 10 mg PO DAILY 08/26/16 [History] Sulfamethoxazole/Trimeth SS [Bactrim SS] 1 each PO DAILY #30 tablet 08/26/16 [Rx ] 3 Allergy/AdvReac Type Severity Reaction Status Date / Time JOAQUIM Inhibitors Allergy Swelling Verified 09/09/17 16:30 of Lip/Tongue/Throat metronidazole [From Flagyl] AdvReac Gastrointestinal Verified 09/09/17 16:30 Upset All systems: reviewed and no additional remarkable complaints except as stated Exam - Constitutional Vitals: Temp Pulse Resp BP Pulse Ox 98.8 F 73 20 133/79 96 09/15/17 10:26 09/15/17 10:26 09/15/17 10:26 09/15/17 10:09/15/17 10:26 General appearance: average body habitus, cooperative, no acute distress - Head Head exam: Present: atraumatic, normal inspection, normocephalic - Eye Eye exam: Present: EOMI, normal appearance, PERRL Pupils: Present: normal accommodation - ENT ENT exam: Present: mucous membranes moist - Neck Neck exam: Present: normal inspection - Respiratory Respiratory exam: Present: CTAB. Absent: rales, respiratory distress, rhonchi, wheezes - Cardiovascular Cardiovascular exam: Present: RRR, +S1, +S2 - GI/Abdominal GI/Abdominal exam: Present: normal bowel sounds, soft. Absent: distended, tenderness - Extremities Exam Extremities exam: Present: normal inspection. Absent: joint swelling, pedal edema, tenderness - Back Exam Back exam: Present: normal inspection. Absent: CVA tenderness (L), CVA tenderness (R) - Neurological Exam Neurological exam: Present: alert, oriented X3, no focal deficits - Psychiatric Psychiatric exam: Present: normal affect, normal mood - Skin Skin exam: Present: dry, intact, normal color, warm Infectious Disease CN: Results - Labs CBC & Chem 7: 09/15/17 04:27 09/15/17 04:27 Cultures: Cultures 09/12/17 19:25 Urine Culture - Final Urine,Clean Catch No growth. 09/11/17 05:50 Blood Culture - Preliminary Peripheral Venipuncture No growth. 09/11/17 05:43 Blood Culture - Preliminary Peripheral Venipuncture No growth. Serology: Serology 09/12/17 Range/Units 19:25 Urine Color Yellow (Yellow) Urine Clarity Cloudy A (Clear) Urine pH 6.0 (5.0-8.0) pH Units Ur Specific [place] 1.014 (1.010-1.025) Urine Protein Trace (Neg-Trace) mg/dL Urine Glucose (UA) Normal (Normal) mg/dL Urine Ketones Negative (Negative) mg/dL Urine Blood Large H (Negative) Urine Nitrite Negative (Negative) Urine Bilirubin Negative (Negative) Urine Urobilinogen Normal (Normal) mg/dL Ur Leukocyte Esterase Moderate H (Negative) Urine Microscopic RBC 30-50 H (0-3) per hpf Urine Microscopic WBC 5-15 H (0-3) per hpf Ur Squamous Epith Cells Few (None-Few) per lpf Ur Culture Indicated? YES A (NO) Consult Discharge Plan - Plan Referrals: Boris Ovalles Jr, MD [Primary Care Provider] - - Attending Attestation I examined this patient and my medical decision-making was reviewed with the Resident Physician. I agree with the documented findings, disposition and treatment plan as described except to the extent set forth below. This is an addendum to original report dictated by Siri Trejo CNP. Please refer to Magda note for full details. Patient is an 81-year-old woman with past medical history mentioned below came in complaining of nausea abdominal pain and feeling weak and tired. Patient was having nonspecific complaints but she tells me and that is how she feels every time she gets her tract infection. Patient came to [place] for evaluation and workup. While here patient was noted to have bacteremia with coagulation negative staph and urine that was revealing pyuria but culture showed multiple organisms and likely was contaminated. Patient had a CT abdomen pelvis which showed cystitis and bilateral strandings of the kidneys. Patient was started on Rocephin and clinically start doing better. Patient continues to have some leukocytosis but otherwise feeling okay. We were asked to evaluate the patient think further recommendations. Assessment and plan Urinary tract infection Bacteremia with coagulation negative Staphylococcus Sepsis Acute kidney injury Recommendations Blood cultures drawn 09/09/17 x 1 set was positive for CONS. Likely a contaminant. Repeat blood cultures drawn 09/11/17 are NGTD x 2 sets. Received 3 days of Vancomycin. No further antibiotics required. Seems to have improved significantly on Rocephin. Continue Rocephin for now.
--- NOTE | 2017-09-15 15:24 | Internal Med Progress Note ---
Date of Encounter: 09/15/17 Time of Encounter: 15:23 - Assessment and plan (1) Sepsis Current Visit: Yes Status: Acute Assessment and plan: Improving. WBC count is improving. Infectious disease following. No changes recommended at this time. Continue Rocephin. Qualifiers: Sepsis type: sepsis due to unspecified organism Qualified Code(s): A41.9 - Sepsis, unspecified organism (2) UTI (urinary tract infection) Current Visit: Yes Status: Acute Assessment and plan: Treating with Rocephin. Cultures negative so far. Initial urine culture grew mixed chavo. Repeat urine culture negative. WBC count is improving. If continues to improve tomorrow, we will discharge patient home on oral antibiotics Qualifiers: Urinary tract infection type: acute pyelonephritis Qualified Code(s): N10 - Acute pyelonephritis (3) Hypertension Current Visit: Yes Status: Chronic Assessment and plan: Blood pressure is well controlled. Continue amlodipine Qualifiers: Qualified Code(s): I10 - Essential (primary) hypertension (4) DVT prophylaxis Current Visit: Yes Status: Acute Assessment and plan: On subcutaneous heparin (5) GERD (gastroesophageal reflux disease) Current Visit: Yes Status: Acute Assessment and plan: Continue omeprazole Qualifiers: Qualified Code(s): K21.9 - Gastro-esophageal reflux disease without esophagitis (6) Hypokalemia Current Visit: Yes Status: Resolved (7) Acute kidney injury Current Visit: Yes Status: Resolved Assessment and plan: Now resolved (8) Incidental lung nodule Current Visit: Yes Status: Acute Assessment and plan: Follow-up with CT scan as outpatient. - Time Spent With Patient Total time spent is greater than 50% in coordination of care (as documented) at patient's floor/unit and/or counseling patient: - Subjective Interval history: Patient is doing well overall. No new complaints at this time. No fever or chills reported. Tolerating diet well. No nausea or vomiting. - Constitutional Vitals: Temp Pulse Resp BP Pulse Ox 98.8 F 73 20 133/79 96 09/15/17 10:26 09/15/17 10:26 09/15/17 10:26 09/15/17 10:26 09/15/17 10:26 General appearance: Present: cooperative, mild distress, A&O X 3, answers questions appropriately - Neck Neck exam general surgery: Present: supple, trachea midline. Absent: lymphadenopathy - Respiratory Respiratory exam: Present: CTAB. Absent: accessory muscle use, rales, rhonchi, wheezes - Cardiovascular Cardiovascular exam: Present: RRR, +S1, +S2. Absent: diastolic murmur, gallop, rubs, systolic murmur - GI/Abdominal GI/Abdominal exam: Present: normal bowel sounds, soft, no peritoneal signs. Absent: distended, tenderness Internal Medicine: Result - Labs CBC & Chem 7: 09/15/17 04:27 09/15/17 04:27 Labs: Short CBC 09/15/17 Range/Units 04:27 WBC 11.8 H (4.3-11.1) K/mcL Hgb 9.6 L (11.5-15.4) g/dL Hct 29.2 L (35.3-44.9) % Plt Count 449 H (140-400) K/mcL Neutrophils # 8.2 (1.6-8.9) K/mcL BMP 09/15/17 04:27 Sodium 139 Potassium 3.6 Chloride 107 Carbon Dioxide 24 BUN 16 Creatinine 1.17 Glucose 105 Calcium 8.9 - ABG Interpretation ABG results: PT/INR, D-dimer PT 13.6 Seconds (9.4-12.1) H 09/09/17 20:40 Consult Discharge Plan - Plan Referrals: Boris Ovalles Jr, MD [Primary Care Provider] -
[2017-09-16] MEDS: Acetaminophen 325 MG TABLET PO PRN (04:28)
[2017-09-16 06:29] LABS: Basophils # 0.1 K/mcL (0.0-0.2); Basophils % 0.8 %; Eosinophils # 0.3 K/mcL (0.0-0.6); Eosinophils % 2.7 %; Hematocrit 29.6 % (35.3-44.9); Hemoglobin 9.4 g/dL (11.5-15.4); Immature Granulocytes % 0.8 % (0-4); Lymphocytes % 16.6 %; Mean Corpuscular HGB Conc 31.8 g/dL (31.6-35.5); Mean Corpuscular Hemoglobin 25.8 pg (28.0-33.3); Mean Corpuscular Volume 81.1 fL (83.0-100.0); Mean Platelet Volume 9.3 fL (9.4-12.4); Monocytes # 0.9 K/mcL (0.0-1.3); Monocytes % 7.9 %; Neutrophils # 8.5 K/mcL (1.6-8.9); Platelet Count 455 K/mcL (140-400); Red Blood Count 3.65 M/mcL (3.82-4.97); Red Cell Distribution Width 15.9 % (11.5-14.5); Segmented Neutrophils % 71.2 %
[2017-09-16 06:49] LABS: Potassium 3.8 mEq/L (3.5-5.1)
[2017-09-16] MEDS: *HR* Heparin 5,000 UNIT/ML VIAL SQ SCH (07:05)
[2017-09-16] MEDS: cefTRIAXone 1,000 MG in Water for inj. (sterile) 20 ML 10 ML IVP SCH (07:56)
[2017-09-16] MEDS: amLODIPine 5 MG TABLET PO SCH (07:56)
[2017-09-16 10:29] VITALS: BP 126/74
--- NOTE | 2017-09-16 11:37 | Infectious Disease Progress No ---
Date of Encounter: 09/16/17 Time of Encounter: 11:35 - Assessment and Plan (1) Sepsis Current Visit: Yes Status: Acute Severe sepsis: The patient had two SIRS criteria on admission with an acute kidney injury. Likely secondary to urinary tract infection and pyelonephritis. Improved. The patient continues to have leukocytosis, but it is stable and near -normal and her differential is normal. She was afebrile overnight. Tachycardia has resolved. Blood cultures obtained September 09 were +1 out of 1 set for coag-negative staph. Repeat blood cultures September 11 are no growth to date 2 sets. Qualifiers: Sepsis type: sepsis due to unspecified organism Qualified Code(s): A41.9 - Sepsis, unspecified organism (2) UTI (urinary tract infection) Current Visit: Yes Status: Acute Causative organism unclear. Urine culture obtained in the office 09/09/17 and in the ER 09/09/17 were both interpreted as grossly mixed chavo. CT of the abdomen and pelvis showed findings consistent with cystitis, ascending UTI, and pyelonephritis. Clinically improved on Rocephin. WBC appears to be stable. Continue Rocephin 1 gram IV daily for now (day 8). Duration of treatment depends on the clinical picture. Qualifiers: Urinary tract infection type: acute pyelonephritis Qualified Code(s): N10 - Acute pyelonephritis (3) Bacteremia Current Visit: Yes Status: Acute Blood cultures drawn 09/09/17 x 1 set was positive for CONS. Likely a contaminant. Repeat blood cultures drawn 09/11/17 are negative x 2 sets. Received 3 days of Vancomycin. No further antibiotics required. (4) Acute kidney injury Current Visit: Yes Status: Resolved Likely secondary to sepsis. Resolved. Continue to trend. Dose-adjust medications. Avoid nephrotoxins as able. (5) Incidental lung nodule Current Visit: Yes Status: Acute CXR showed left lateral base lung nodule. Pulmonary to evaluate as an outpatient. - Subjective Interval history: Patient seen and examined. No acute events noted overnight. Patient sitting up in bed with family at bedside. States she feels better today. Denies fevers, chills, or rigors. Denies chest pain, shortness of breath, or cough. States the nausea is better and denies vomiting. States she was able to eat a little breakfast this morning and her appetite seems back to baseline. Denies abdominal pain, urinary complaints. Denies back or flank pain. Complains of chronic right knee pain that is at baseline. Denies oral thrush or new skin lesions. Infect Dis PN-Objective Data - Labs CBC & Chem 7: 09/16/17 05:24 09/16/17 05:24 Labs: Laboratory Results - last 24 hr 09/16/17 09/16/17 05:24 05:24 WBC 11.9 H RBC 3.65 L Hgb 9.4 L Hct 29.6 L MCV 81.1 L MCH 25.8 L MCHC 31.8 RDW 15.9 H Plt Count 455 H MPV 9.3 L Immature Gran % 0.8 Seg Neutrophils % 71.2 Lymphocytes % 16.6 Monocytes % 7.9 Eosinophils % 2.7 Basophils % 0.8 Neutrophils # 8.5 Lymphocytes # 2.0 Monocytes # 0.9 Eosinophils # 0.3 Basophils # 0.1 Sodium 144 Potassium 3.8 Chloride 109 H Carbon Dioxide 23 BUN 17 Creatinine 1.14 Est GFR ( Amer) 55 L Est GFR (Non-Af Amer) 46 L BUN/Creatinine Ratio 15 Glucose 98 Calculated Osmolality 300 Calcium 9.0 Cultures: Cultures 09/11/17 05:50 Blood Culture - Final Peripheral Venipuncture No growth. 09/11/17 05:43 Blood Culture - Final Peripheral Venipuncture No growth. 09/12/17 19:25 Urine Culture - Final Urine,Clean Catch No growth. Serology 09/12/17 Range/Units 19:25 Urine Color Yellow (Yellow) Urine Clarity Cloudy A (Clear) Urine pH 6.0 (5.0-8.0) pH Units Ur Specific [place] 1.014 (1.010-1.025) Urine Protein Trace (Neg-Trace) mg/dL Urine Glucose (UA) Normal (Normal) mg/dL Urine Ketones Negative (Negative) mg/dL Urine Blood Large H (Negative) Urine Nitrite Negative (Negative) Urine Bilirubin Negative (Negative) Urine Urobilinogen Normal (Normal) mg/dL Ur Leukocyte Esterase Moderate H (Negative) Urine Microscopic RBC 30-50 H (0-3) per hpf Urine Microscopic WBC 5-15 H (0-3) per hpf Ur Squamous Epith Cells Few (None-Few) per lpf Ur Culture Indicated? YES A (NO) Exam - Constitutional Vitals: Temp Pulse Resp BP Pulse Ox 98.7 F 89 18 126/74 96 09/16/17 10:28 09/16/17 10:28 09/16/17 10:28 09/16/17 10:28 09/16/17 10:28 General appearance: average body habitus, cooperative, no acute distress - Head Head exam: Present: atraumatic, normal inspection, normocephalic - Eye Eye exam: Present: EOMI, normal appearance, PERRL Pupils: Present: normal accommodation - ENT ENT exam: Present: mucous membranes moist - Neck Neck exam: Present: normal inspection - Respiratory Respiratory exam: Present: CTAB. Absent: rales, respiratory distress, rhonchi, wheezes - Cardiovascular Cardiovascular exam: Present: RRR, +S1, +S2 - GI/Abdominal GI/Abdominal exam: Present: normal bowel sounds, soft. Absent: distended, tenderness - Extremities Exam Extremities exam: Present: normal inspection. Absent: joint swelling, pedal edema, tenderness - Back Exam Back exam: Absent: CVA tenderness (L), CVA tenderness (R) - Neurological Exam Neurological exam: Present: alert, oriented X3, no focal deficits - Psychiatric Psychiatric exam: Present: normal affect, normal mood - Skin Skin exam: Present: dry, intact, normal color, warm Consult Discharge Plan - Plan Referrals: Boris Ovalles Jr, MD [Primary Care Provider] - - Attending Attestation I examined this patient and my medical decision-making was reviewed with the Resident Physician. I agree with the documented findings, disposition and treatment plan as described except to the extent set forth below.
--- NOTE | 2017-09-16 13:22 | Discharge Summary ---
- NOTES TO OUTPATIENT PROVIDER Notes to Outpatient Provider: Patient admitted with Sepsis from UTI/ pyelonephritis. Will be discharged on omnicef to complete 10 day course. Negative blood and urine cultures Orders not resulted at time of discharge: Pending orders 09/11/17 03:29 Sputum Culture [Culture,Sputum with Gram Stain] [] Routine Date of Encounter: 09/16/17 Time of Encounter: 13:17 - Discharge Diagnosis (1) Sepsis Priority: Primary Status: Acute Qualifiers: Sepsis type: sepsis due to unspecified organism Qualified Code(s): A41.9 - Sepsis, unspecified organism (2) UTI (urinary tract infection) Priority: Secondary Status: Acute Qualifiers: Urinary tract infection type: acute pyelonephritis Qualified Code(s): N10 - Acute pyelonephritis (3) Hypertension Priority: Secondary Status: Chronic Qualifiers: Hypertension type: essential hypertension Qualified Code(s): I10 - Essential (primary) hypertension (4) DVT prophylaxis Priority: Secondary Status: Acute (5) GERD (gastroesophageal reflux disease) Priority: Secondary Status: Acute Qualifiers: Esophagitis presence: without esophagitis Qualified Code(s): K21.9 - Gastro -esophageal reflux disease without esophagitis (6) Hypokalemia Priority: Secondary Status: Resolved (7) Acute kidney injury Priority: Secondary Status: Resolved (8) Incidental lung nodule Priority: Secondary Status: Acute Hospital course: Ms. Paiz is a 82 year old female patient with a history of gastroesophageal reflux disease, hypertension and recurrent UTI who was hospitalized here with an episode of sepsis with UTI. She was treated with IV antibiotics and has symptoms have slowly improved. Her leukocytosis did persist and so infectious disease was consulted. Her urine cultures were grossly mixed. No organism identified. One set of blood culture was positive for staph epidermidis which was likely contaminant. She did receive vancomycin intravenously for 3 days. Repeat urine cultures and blood cultures have been negative. Infectious disease has evaluated the patient and recommended discharge today on oral antibiotics to complete 14 day treatment course. She will follow up with her primary care provider for further management and evaluation for recurrent UTI. Discharge discussed with: patient, nurse, case management - Time Spent with Patient Total time spent providing and/or coordinating discharge services: Greater than 30 minutes (35 min) - Discharge Medications Prescriptions: Cefdinir [Omnicef] 300 mg PO BID #4 capsule Home Medications: Omeprazole [PriLOSEC] 20 mg PO DAILY 12/26/14 [History] Amlodipine Besylate 10 mg PO DAILY 08/26/16 [History] Cefdinir [Omnicef] 300 mg PO BID #4 capsule 09/16/17 [Rx] Allergies/Adverse Reactions: 3 Allergy/AdvReac Type Severity Reaction Status Date / Time JOAQUIM Inhibitors Allergy Swelling Verified 09/09/17 16:30 of Lip/Tongue/Throat metronidazole [From Flagyl] AdvReac Gastrointestinal Verified 09/09/17 16:30 Upset Date of admission: 09/09/17 20:01 Primary care physician: Boris Ovalles Jr, MD Consults: 09/14/17 16:33 Consult to Infectious Diseases [CONS] Routine Consulting Provider: Infectious Disease [facility]ia Reason for Consult: Sepsis, leukocytosis Call Completed: No Discharging clinician: Yuan Baumann Anticipated date of discharge: 09/16/17 - Constitutional Vitals: Temp Pulse Resp BP Pulse Ox 98.7 F 89 18 126/74 96 09/16/17 10:28 09/16/17 10:28 09/16/17 10:28 09/16/17 10:28 09/16/17 10:28 General appearance: Present: cooperative, mild distress, A&O X 3, answers questions appropriately - Respiratory Respiratory exam: Present: CTAB. Absent: accessory muscle use, rales, rhonchi, wheezes - Cardiovascular Cardiovascular exam: Present: RRR, +S1, +S2. Absent: diastolic murmur, gallop, rubs, systolic murmur - GI/Abdominal GI/Abdominal exam: Present: normal bowel sounds, soft, no peritoneal signs. Absent: distended, tenderness - Extremities Exam Extremities exam: Present: warm, radial pulses palpable and symmetrical. Absent : calf tenderness, cyanotic, pedal edema - Neurological Exam Neurological exam: Present: alert, oriented X3, no focal deficits. Absent: facial droop, speech deficit - Skin Skin exam: Present: dry, intact - Patient Status Disposition: Home, Self-Care Condition: Good Functional capacity at discharge: independent ambulation Overall status at discharge: patient is progressing back to baseline - Ambulatory Orders Ambulatory Orders: CT chest wo con [CT] Time Frame: 1 Week, Facility: [facility] , Location: Radiology - Discharge Instructions Follow Up With: Boris Ovalles Jr, MD [Primary Care Provider] - (in 1 week) - Diet and Activity Activity: increase activity as tolerated Diet: diabetic diet, low fat, low cholesterol, low salt diet
== END 2017-09-16 17:30 | disposition home or self-care (01) | DRG 872 ==
LOC: EMEROO 14:05 → 3ANU 14:05 → SUATTDRO 20:01
PROVIDERS: ADMIT Hospitalist; ATTEND Internal Medicine